=== PATIENT | male | born 1940 | race Caucasian/White ===

== ENCOUNTER 2020-05-07 13:57 | Outpatient (REF) | payer MEDICARE, SELFPAY | END 2020-05-07 13:58 | disposition home or self-care (01) | LOC: HO.HMGCLDS 13:57 | PROVIDERS: Visit Provider Internal Medicine | DX: Z20.828 Contact with and (suspected) exposure to other viral communicable diseases (principal) | CPT/HCPCS: 87635 ==

== ENCOUNTER 2020-11-19 08:38 | Outpatient (REF) | payer MEDICARE, SELFPAY ==
[2020-11-19 11:27] LABS: MANUAL DIFF FLAG NO
[2020-11-19 11:33] LABS: Glucose Urine UA NEG (NEG); Leukocyte Esterase Urine NEG (NEG); Nitrite Urine NEG (NEG); PH 5.5 (5.0-8.0); Specific Gravity - Urine 1.025 (1.005-1.025); Urine Blood NEG (NEG); Urine Ketones NEG (NEG); Urine Protein NEG (NEG-TRACE)
[2020-11-19 11:35] LABS: Appearance Urine CLEAR; Color Urine YELLOW
[2020-11-19 11:47] LABS: Basophils Absolute Auto 0.1 X10*3/uL (0.0-0.2); Basophils Percent Auto 0.9 % (0-2); Eosinophils Absolute Auto 0.2 X10*3/uL (0.0-0.4); Eosinophils Percent Auto 3.4 % (0-4); Hematocrit 43.1 % (42-52); Hemoglobin 14.2 g/dl (14.0-18.0); Imm Gran Abs Auto 0.02 X10*3/uL (0.00-0.03); Imm Gran Pct Auto 0.4 % (0.0-0.4); Lymphocytes Absolute Auto 1.6 X10*3/uL (1.2-4.9); Lymphocytes Percent Auto 27.6 % (20-40); Mean Corpuscular HGB Conc 32.9 g/dl (31.0-36.0); Mean Corpuscular Hemoglobin 30.8 pg (27.0-33.0); Mean Corpuscular Volume 93.5 fL (80-98); Mean Platelet Volume 12.2 fL (9.4-12.4); Monocytes Absolute Auto 0.5 X10*3/uL (0.1-1.2); Neutrophils Absolute Auto 3.4 X10*3/uL (2.0-8.3); Neutrophils Percent Auto 59.7 % (45-73); Platelet Count 224 X10*3/uL (160-400); Red Blood Count 4.61 X10*6/uL (4.60-5.80); Red Cell Distribution Width 12.8 % (11.0-16.0); White Blood Count 5.6 X10*3/uL (4.8-10.8)
[2020-11-19 11:57] LABS: RBC Urine 0-2 /HPF (0); WBC Urine 0 /HPF (0-4)
[2020-11-19 12:02] LABS: Alanine Aminotransferase 49 U/L (0-40); Albumin Level 4.1 g/dL (3.5-5.0); Alkaline Phosphatase 79 U/L (39-117); Anion Gap 14 (12-20); Aspartate Amino Transferase 27 U/L (5-37); Bilirubin Total 0.9 mg/dL (0.0-1.0); Blood Urea Nitrogen 20 mg/dL (9-16); Calcium 9.1 mg/dL (8.4-10.2); Carbon Dioxide 26 mmol/L (22-29); Chloride 105 mmol/L (96-108); Cholesterol 151 mg/dL; Estimated Glomerular Filt Rate > 60; Glucose Random 85 mg/dL (60-115); HDL Cholesterol 55 mg/dL; LDL Cholesterol Calculated 85 mg/dl; Potassium 4.4 mmol/L (3.3-5.1); Sodium 141 mmol/L (135-145); Total Protein 6.6 g/dL (6.5-8.0); Triglycerides 55 mg/dL
[2020-11-19 12:14] LABS: Free T4 (Free Thyroxine) 0.95 ng/dL (0.71-1.85); Thyroid Stimulating Hormone 1.58 uIU/mL (0.32-4.0)
[2020-11-19 12:45] LABS: Folate 19.6 ng/mL (> or = 4.0); Vitamin B12 708 pg/mL (200-900)
== END 2020-11-19 08:39 | disposition home or self-care (01) ==
LOC: HO.HMGCLDS 08:38
PROVIDERS: PCP Internal Medicine; Visit Provider Internal Medicine
DX: E78.00 Pure hypercholesterolemia, unspecified (principal)
CPT/HCPCS: 36415; 80053; 80061; 81001; 82607; 82746; 84439; 84443; 85025

== ENCOUNTER 2021-02-20 07:42 | Outpatient (REF) | payer MEDICARE, SELFPAY ==
--- NOTE | ~2021-02-20 | US_ITS ---
EXAMINATION: US ABDOMEN COMPLETE CLINICAL INFORMATION: Abnormal LFTs. COMPARISON: Renal ultrasound of March 05, 2010 TECHNIQUE: Real-time imaging of the abdominal viscera. FINDINGS: PANCREAS: Normal. ABDOMINAL AORTA: The proximal, mid, and distal segments are normal in caliber. INFERIOR VENA CAVA: Visualized portions are normal. LIVER: Normal. The liver is normal in size. The liver contour is normal. Parenchymal echogenicity is normal. No focal hepatic lesion. There is no intrahepatic biliary duct dilatation seen. GALLBLADDER: Normal. The gallbladder is physiologically distended without evidence of stones, sludge, polyps, wall thickening or pericholecystic fluid. COMMON BILE DUCT: Normal in caliber measuring 0.3 cm in diameter. RIGHT KIDNEY: There is a 3.2 x 2.8 x 3.2 cm midpole cyst as well as a 1.4 x 1.2 x 1.4 cm midpole cyst. No hydronephrosis or renal calculi. The kidney measures 10.3 cm in maximum dimension. LEFT KIDNEY: There are multiple parapelvic cysts present. No hydronephrosis. No renal calculi or focal solid parenchymal lesions. The kidney measures 11.9 cm in maximum dimension. SPLEEN: Normal. The spleen measures 8.0 cm in maximum dimension. FREE FLUID: None. US/US abdomen complete IMPRESSION: Bilateral renal cysts. No definite hepatic abnormality appreciated to explain abnormal LFTs.
== END 2021-02-20 07:43 | disposition home or self-care (01) ==
LOC: HO.US 07:42
PROVIDERS: Visit Provider Internal Medicine
DX: R79.89 Other specified abnormal findings of blood chemistry (principal)
CPT/HCPCS: 76700

== ENCOUNTER 2021-08-19 13:56 | Outpatient (REF) | payer MEDICARE, SELFPAY ==
[2021-08-19 16:52] LABS: Alanine Aminotransferase 53 U/L (0-40); Alkaline Phosphatase 81 U/L (39-117); Anion Gap 13 (12-20); Aspartate Amino Transferase 29 U/L (5-37); Bilirubin Total 0.4 mg/dL (0.0-1.0); Blood Urea Nitrogen 19 mg/dL (9-16); Calcium 9.8 mg/dL (8.4-10.2); Carbon Dioxide 31 mmol/L (22-29); Chloride 103 mmol/L (96-108); Estimated Glomerular Filt Rate > 60; Glucose Random 116 mg/dL (60-115); Iron 126 mcg/dL (45-160); Percent Iron Saturation 30 % (15-50); Potassium 4.8 mmol/L (3.3-5.1); Sodium 142 mmol/L (135-145); Total Iron Binding Capacity 416 mcg/dL (228-428); Total Protein 7.1 g/dL (6.5-8.0); Unsaturated Iron Binding 290 ug/dL
[2021-08-19 17:23] LABS: Ferritin 111 ng/mL (20-250)
[2021-08-20 09:14] LABS: HBS Num1 0.73 mIU/mL (0-7.99); HBc Num1 0.11 S/CO (0.00-0.79); HBsAGNum1 0.17 S/CO (0.00-0.99); Hepatitis B Core Antibody Nonreactive (Nonreactive); Hepatitis B Surface Antigen Negative (Negative); ~HepC Num1 0.09 S/CO (0.00-0.79); ~Hepatitis B Surface Antibody NONREACTIVE (Nonreactive); ~Hepatitis C Antibody Nonreactive (Nonreactive)
[2021-08-20 22:12] LABS: Prot Elec - Albumin 3.9 g/dL (3.8-4.8); Prot Elec - Alpha1 0.3 g/dL (0.2-0.3); Prot Elec - Alpha2 0.8 g/dL (0.5-0.9); Prot Elec - Beta 1 0.5 g/dL (0.4-0.6); Prot Elec - Beta 2 0.4 g/dL (0.2-0.5); Prot Elec - Gamma 0.9 g/dL (0.8-1.7); Prot Elec - Total Protein 6.7 g/dL (6.1-8.1)
== END 2021-08-19 13:57 | disposition home or self-care (01) ==
LOC: HO.HMGCLDS 13:56
PROVIDERS: PCP Internal Medicine; Visit Provider Internal Medicine
DX: Z12.5 Encounter for screening for malignant neoplasm of prostate (principal); R79.89 Other specified abnormal findings of blood chemistry; R94.5 Abnormal results of liver function studies; E78.00 Pure hypercholesterolemia, unspecified
CPT/HCPCS: 36415; 80053; 82728; 83540; 84153; 84165; 86704; 86706; 86803; 87340

== ENCOUNTER 2022-02-20 18:06 | Outpatient (REF) | payer MEDICARE, SELFPAY ==
[2022-02-20 19:02] LABS: Influenza A PCR NEGATIVE (Negative); Influenza B PCR NEGATIVE (Negative); Resp Syncy Virus RNA Qual PCR NEGATIVE (Negative); SARS COV2 PCR INHOUSE NEGATIVE (Negative)
== END 2022-02-20 18:07 | disposition home or self-care (01) ==
LOC: HO.LNP 18:06
PROVIDERS: Visit Provider Internal Medicine
DX: R09.89 Other specified symptoms and signs involving the circulatory and respiratory systems (principal); J02.9 Acute pharyngitis, unspecified; Z20.822 Contact with and (suspected) exposure to COVID-19
CPT/HCPCS: 0241U

== ENCOUNTER 2022-02-26 10:03 | Outpatient (REF) | payer MEDICARE, SELFPAY ==
--- NOTE | ~2022-02-26 | XR_ITS ---
EXAMINATION: XR CHEST CLINICAL INFORMATION: Acute upper respiratory infection COMPARISON: None TECHNIQUE: 2 views of the chest were obtained. FINDINGS: Lungs are well-inflated and clear. Trachea is midline in position. No interstitial disease, consolidation or mass. No pleural effusion or pneumothorax. Cardiac silhouette and pulmonary vessels are normal in size. The mediastinum and gela have normal contour. Mild multilevel discovertebral degenerative change of the thoracic spine. XR/XR chest 2V IMPRESSION: No evidence of pneumonia. No acute cardiopulmonary abnormality.
== END 2022-02-26 10:04 | disposition home or self-care (01) ==
LOC: HO.HMGCX 10:03
PROVIDERS: PCP Internal Medicine; Visit Provider Internal Medicine
DX: J06.9 Acute upper respiratory infection, unspecified (principal)
CPT/HCPCS: 71046

== ENCOUNTER 2022-07-30 07:44 | Outpatient (REF) | payer MEDICARE, SELFPAY ==
[2022-07-30 11:42] LABS: Anion Gap 11 (12-20); Blood Urea Nitrogen 22 mg/dL (9-16); Calcium 9.3 mg/dL (8.4-10.2); Carbon Dioxide 29 mmol/L (22-29); Chloride 105 mmol/L (96-108); Estimated Glomerular Filt Rate > 60; Glucose Fasting 98 mg/dL (60-99); Potassium 4.6 mmol/L (3.3-5.1); Sodium 140 mmol/L (135-145)
== END 2022-07-30 07:45 | disposition home or self-care (01) ==
LOC: HO.HMGCLDS 07:44
PROVIDERS: Nurse Practitioner Family; PCP Internal Medicine; Visit Provider Internal Medicine
DX: Z13.1 Encounter for screening for diabetes mellitus (principal)
CPT/HCPCS: 36415; 80048

== ENCOUNTER 2022-09-09 07:53 | Outpatient (REF) | payer MEDICARE, SELFPAY ==
[2022-09-09 11:28] LABS: MANUAL DIFF FLAG NO
[2022-09-09 11:31] LABS: Basophils Absolute Auto 0.1 X10*3/uL (0.0-0.2); Eosinophils Absolute Auto 0.3 X10*3/uL (0.0-0.4); Eosinophils Percent Auto 3.8 % (0-4); Hemoglobin 15.2 g/dl (14.0-18.0); Imm Gran Abs Auto 0.05 X10*3/uL (0.00-0.03); Imm Gran Pct Auto 0.7 % (0.0-0.4); Lymphocytes Absolute Auto 2.1 X10*3/uL (1.2-4.9); Lymphocytes Percent Auto 30.1 % (20-40); Mean Corpuscular Hemoglobin 30.9 pg (27.0-33.0); Mean Corpuscular Volume 93.5 fL (80.0-98.0); Monocytes Absolute Auto 0.7 X10*3/uL (0.1-1.2); Monocytes Percent Auto 9.3 % (2-11); Neutrophils Absolute Auto 3.9 x10*3/uL (2.0-8.3); Neutrophils Percent Auto 55.1 % (45-73); Platelet Count 245 X10*3/uL (160-400); Red Blood Count 4.92 X10*6/uL (4.60-5.80); Red Cell Distribution Width 13.3 % (11.0-16.0); White Blood Count 7.1 X10*3/uL (4.8-10.8)
[2022-09-09 11:50] LABS: Estimated Average Glucose 117 mg/dL; Hemoglobin A1c % 5.7 %
[2022-09-09 11:53] LABS: Alanine Aminotransferase 53 U/L (0-40); Albumin Level 4.1 g/dL (3.5-5.0); Alkaline Phosphatase 88 U/L (39-117); Anion Gap 13 (12-20); Aspartate Amino Transferase 28 U/L (5-37); Bilirubin Total 0.8 mg/dL (0.0-1.0); Blood Urea Nitrogen 19 mg/dL (9-16); Calcium 9.5 mg/dL (8.4-10.2); Carbon Dioxide 29 mmol/L (22-29); Chloride 104 mmol/L (96-108); Cholesterol 181 mg/dL; Estimated Glomerular Filt Rate > 60; Glucose Random 100 mg/dL (60-115); HDL Cholesterol 64 mg/dL; LDL Cholesterol Calculated 101 mg/dl; Potassium 4.8 mmol/L (3.3-5.1); Sodium 141 mmol/L (135-145); Total Protein 6.7 g/dL (6.5-8.0); Triglycerides 80 mg/dL
[2022-09-09 12:27] LABS: Folate 19.2 ng/mL (> or = 4.0); Free T4 (Free Thyroxine) 1.01 ng/dL (0.71-1.85); Thyroid Stimulating Hormone 1.98 uIU/mL (0.32-4.0); Vitamin B12 > 2000 pg/mL (200-900)
== END 2022-09-09 07:54 | disposition home or self-care (01) ==
LOC: HO.HMGCLDS 07:53
PROVIDERS: PCP Internal Medicine; Visit Provider Internal Medicine
DX: E66.3 Overweight (principal); E78.00 Pure hypercholesterolemia, unspecified
CPT/HCPCS: 36415; 80053; 80061; 82607; 82746; 83036; 84439; 84443; 85025

== ENCOUNTER 2023-03-24 14:17 | Outpatient (AMB) | payer MEDICARE, SELFPAY ==
[2023-03-24 14:20] VITALS: BP 124/76; BMI 25.8
--- NOTE | 2023-03-24 14:20 | A.OFFPC_ITS ---
Vital Signs 03/24/23 14:20 Height 5 ft 6 in Weight 160 lb BMI 25.8 BP 124/76 Blood Pressure Location Lt brachial Position Sitting Pulse Source Pulse Oximeter Oxygen Delivery Method Room Air Intake Visit Reasons: Hypercholesterolemia Allergies prednisone [PREDNISONE] Allergy (Intermediate, Verified 03/24/23 14:20) EXTREME HIVES Medication List - Last Reconciled 03/24/23 by Arley Hills MD atorvastatin 40 mg PO DAILY 90 days cholecalciferol (vitamin D3) 50 mcg PO DAILY elderberry fruit-honey 0.7-3 gram/7.5 mL mL PO flaxseed oil ([employer]-3 Flaxseed Oil) 1,000 mg PO DAILY fluticasone propionate 50 mcg/actuation 1 spray intranasal BID jbqbeasiaiv-eieuqbjkm-ymq C-Mn 500-400 mg caps PO lactobacillus combination no.9 (Adult 50 Plus Probiotic) 4,000 mmu cells PO DAILY multivitamin 1 tab PO DAILY Tobacco use date assessed: 08/11/22 Fall risk assessment: No Falls in past year Last assessed Fall Risk: 03/24/23 Dental Screening Dental Screen Date: 03/24/23 Did you have a dental visit in the last 12 months?: Yes Did you have a dental problem in the last 6 months where you did not have access to dental care?: No Was dental information given to patient?: Patient has dentist HPI Hypercholesterolemia HPI Details 82-year-old overweight male with a history of impaired glucose tolerance hypercholesterolemia and the elevated liver function coming in for follow-up last seen in August 2022. Colonoscopy last done in February 2012. concern about memory . has frequency. About decreasing fluid intake before sleeping PFSH Medical History Adult general medical exam Anxiety Sore throat Tick bite URI with cough and congestion Surgical History Hx of tonsillectomy Family History (Updated 03/24/23 @ 14:22 by Caterina Salvador MA) Father No problems noted. Mother No problems noted. Brother No problems noted. Sister No problems noted. Sister No problems noted. Sister No problems noted. Son No problems noted. Social History Housing: Condominium Alcohol intake: current Alcohol intake frequency: a few times a month Patient Tobacco Use Status: Never used Tobacco e-Cigarette/Vaping Use: Never Used Second Hand Smoke Exposure: No service: Yes Current occupational status: retired Current occupational exposures/hazards: No Cognitive needs: No Hearing needs: No Vision needs: Yes Questionnaire PHQ-9 Over the last 2 weeks, how often have you been bothered by any of the following problems? 1. Little interest or pleasure in doing things: not at all 2. Feeling down, depressed, or hopeless: not at all 3. Trouble falling or staying asleep, or sleeping too much: not at all 4. Feeling tired or having little energy: not at all 5. Poor appetite or overeating: not at all 6. Feeling bad about yourself - or that you are a failure or have let yourself or your family down: not at all 7. Trouble concentrating on things, such as reading the newspaper or watching television: not at all 8. Moving or speaking so slowly that other people could have noticed. Or the opposite - being so fidgety or restless that you have been moving around a lot more than usual: not at all 9. Thoughts that you would be better off or of hurting yourself in some way: not at all Total score: 0 Depression Screening Interpretation: Negative Source: Developed by Drs. Tod Og, Estrada Kerr and colleagues, with an educational eugenie from [employer]. Thrive Questionnaire Date Thrive assessed: 08/11/22 AUDIT C Alcohol Use Questionnaire (AUDIT-C) 1. How often do you have a drink containing alcohol?: Never 3. How often do you have six or more drinks on one occasion?: Never Total Score: 0 Score Reviewed/Action Taken: No CHELSEA-7 AMB Questionnaire CHELSEA-7 Date CHELSEA - 7 assessed: 08/11/22 Source: Developed by Drs. Tod Og, Estrada Kerr and colleagues, with an educational eugenie from [employer]. Physical exam (Primary Care) Vital Signs: Last Vital Signs BP 124/76 03/24/23 14:20 Oxygen Delivery Method Room Air 03/24/23 14:20 BMI result Body Mass Index 27.0 Tobacco/Smoking Status: Tobacco use Status Tobacco use date assessed 08/11/22 03/24/23 14:27 Patient Tobacco Use Status Never used Tobacco 03/24/23 14:27 e-Cigarette/Vaping Use Never Used 03/24/23 14:27 PHQ-9: PHQ-9 Score PHQ-9: Total score 0 03/24/23 14:53 Depression Screening Interpretation: Negative Thrive Assessment: Date of Thrive Assessment Date Thrive assessed 08/11/22 03/24/23 14:27 Const General: alert; No acute distress Eyes Conjunctivae: conjunctivae normal Resp Auscultation: clear to auscultation bilaterally Cardio Rate: regular rate Rhythm: regular rhythm GI Inspection: Yes normal to inspection Extrem General: Yes normal to inspection and No edema Assessment and Plan Assessment & Plan (1) Difficulty hearing: Code(s): H91.90 - Unspecified hearing loss, unspecified ear (2) Impaired glucose tolerance: Code(s): R73.02 - Impaired glucose tolerance (oral) Plan: Decrease the amount of carbohydrate intake, pasta, bread, rice and potatoes are all sugar and that is aside from all the sweet stuff, remember that fruits are g ood but they are Sweet also. (3) Overweight (BMI 25.0-29.9): Code(s): E66.3 - Overweight Plan: Diet and exercise (4) LFT elevation: Comment: Ultrasound done negative Code(s): R79.89 - Other specified abnormal findings of blood chemistry Plan: Will continue to monitor liver function test. But this is stable (5) Hypercholesterolemia: Code(s): E78.00 - Pure hypercholesterolemia, unspecified Plan: Avoid fried foods, chicken skin, eggs, butter margarine, pastries and meat. Be it pork or beef they have a lot of cholesterol LDL goal of less than 130 and triglyceride of less than 150 Orders: Orders Vitamin B12 and Folate 6 Months E78.00 - Pure hypercholesterolemia, unspecified Comprehensive Met. Panel 6 Months E78.00 - Pure hypercholesterolemia, unspecified Hemoglobin A1c 6 Months E78.00 - Pure hypercholesterolemia, unspecified Lipid Panel 6 Months E78.00 - Pure hypercholesterolemia, unspecified Free T4 (Free Thyroxine) 6 Months E78.00 - Pure hypercholesterolemia, unspecified Thyroid Stimulating Hormone 6 Months E78.00 - Pure hypercholesterolemia, unspecified Complete Blood Count Auto Diff 6 Months E78.00 - Pure hypercholesterolemia, unspecified UA w Microscopic Today E78.00 - Pure hypercholesterolemia, unspecified Coding Level of Care Code Est Pt Level 4 (72635) Diagnoses Difficulty hearing H91.90 Impaired glucose tolerance R73.02 Overweight (BMI 25.0-29.9) E66.3 LFT elevation R79.89 Hypercholesterolemia E78.00 Additional Codes PHQ-9 - 39513 - PHQ-9 Billing: Y ([id number])
== END 2023-03-24 15:09 | disposition home or self-care (01) ==
PROVIDERS: Visit Provider Internal Medicine
DX: H91.90 Unspecified hearing loss, unspecified ear (principal); R73.02 Impaired glucose tolerance (oral); E66.3 Overweight; R79.89 Other specified abnormal findings of blood chemistry; E78.00 Pure hypercholesterolemia, unspecified
CPT/HCPCS: 99214

== ENCOUNTER 2023-07-17 09:44 | Outpatient (REF) | payer MEDICARE, SELFPAY ==
[2023-07-17 11:02] LABS: Influenza A PCR POSITIVE (Negative); Influenza B PCR NEGATIVE (Negative); Resp Syncy Virus RNA Qual PCR NEGATIVE (Negative); SARS COV2 PCR INHOUSE NEGATIVE (Negative)
== END 2023-07-17 09:45 | disposition home or self-care (01) ==
LOC: HO.LAB 09:44
PROVIDERS: PCP Internal Medicine; Visit Provider Internal Medicine
DX: R05.9 Cough, unspecified (principal); Z11.52 Encounter for screening for COVID-19
CPT/HCPCS: 0241U

== ENCOUNTER 2023-09-10 07:26 | Outpatient (REF) | payer MEDICARE, SELFPAY ==
[2023-09-10 11:37] LABS: Appearance Urine Clear; Color Urine Yellow; Glucose Urine UA Negative (Negative); Leukocyte Esterase Urine Negative (Negative); MANUAL DIFF FLAG NO; Nitrite Urine Negative (Negative); Specific Gravity - Urine 1.015 (1.005-1.025); Urine Blood Negative (Negative); Urine Ketones Negative (Negative); Urine Protein Negative (Neg-Trace)
[2023-09-10 11:43] LABS: Bacteria Urine None Seen (None Seen); Hyaline Casts Urine 0-2 /LPF (0-2); RBC Urine 0-2 /HPF (0-2); Squamous Epithelial Cell Urine 0-2 /HPF (0-2); WBC Urine 0-5 /HPF (0-5)
[2023-09-10 11:52] LABS: Basophils Absolute Auto 0.1 X10*3/uL (0.0-0.2); Eosinophils Absolute Auto 0.2 X10*3/uL (0.0-0.4); Eosinophils Percent Auto 3.1 % (0-4); Hematocrit 44.8 % (42.0-52.0); Hemoglobin 14.9 g/dl (14.0-18.0); Imm Gran Abs Auto 0.03 X10*3/uL (0.00-0.03); Imm Gran Pct Auto 0.5 % (0.0-0.4); Lymphocytes Absolute Auto 1.8 X10*3/uL (1.2-4.9); Lymphocytes Percent Auto 29.9 % (20-40); Mean Corpuscular HGB Conc 33.3 g/dl (31.0-36.0); Mean Corpuscular Hemoglobin 31.2 pg (27.0-33.0); Mean Corpuscular Volume 93.7 fL (80.0-98.0); Mean Platelet Volume 11.9 fL (9.4-12.4); Monocytes Absolute Auto 0.5 X10*3/uL (0.1-1.2); Neutrophils Absolute Auto 3.3 x10*3/uL (2.0-8.3); Neutrophils Percent Auto 56.5 % (45-73); Platelet Count 234 X10*3/uL (160-400); Red Blood Count 4.78 X10*6/uL (4.60-5.80); Red Cell Distribution Width 12.9 % (11.0-16.0); White Blood Count 5.9 X10*3/uL (4.8-10.8)
[2023-09-10 11:55] LABS: Estimated Average Glucose 117 mg/dL; Hemoglobin A1c % 5.7 % (<6.0)
[2023-09-10 12:23] LABS: Alanine Aminotransferase 54 U/L (0-40); Alkaline Phosphatase 78 U/L (39-117); Anion Gap 12 (12-20); Aspartate Amino Transferase 32 U/L (5-37); Bilirubin Total 0.6 mg/dL (0.0-1.0); Blood Urea Nitrogen 18 mg/dL (9-16); Calcium 9.5 mg/dL (8.4-10.2); Carbon Dioxide 30 mmol/L (22-29); Chloride 104 mmol/L (96-108); Cholesterol 175 mg/dL (<200); Estimated Glomerular Filt Rate > 60; Glucose Random 97 mg/dL (60-115); HDL Cholesterol 63 mg/dL (>40); LDL Cholesterol Calculated 98 mg/dL (<100); Potassium 4.5 mmol/L (3.3-5.1); Sodium 141 mmol/L (135-145); Total Protein 7.2 g/dL (6.5-8.0); Triglycerides 73 mg/dL (<150)
[2023-09-10 12:26] LABS: Folate 14.4 ng/mL (> or = 4.0); Free T4 (Free Thyroxine) 0.94 ng/dL (0.71-1.85); Thyroid Stimulating Hormone 1.83 uIU/mL (0.32-4.0); Vitamin B12 879 pg/mL (200-900)
== END 2023-09-10 07:27 | disposition home or self-care (01) ==
LOC: HO.HMGCLDS 07:26
PROVIDERS: PCP Internal Medicine; Visit Provider Internal Medicine
DX: E78.00 Pure hypercholesterolemia, unspecified (principal)
CPT/HCPCS: 36415; 80053; 80061; 81001; 82607; 82746; 83036; 84439; 84443; 85025

== ENCOUNTER 2023-09-14 08:32 | Outpatient (AMB) | payer MEDICARE, SELFPAY ==
--- NOTE | 2023-09-14 08:33 | MHC.PC.OV ---
Vital Signs 09/14/23 08:36 Height 5 ft 6 in Weight 159 lb 2 oz BMI 25.7 BP 128/78 Blood Pressure Location Lt brachial Position Sitting Pulse 75 Pulse Source Pulse Oximeter Pulse Oximetry (%) 96 Oxygen Delivery Method Room Air Intake Visit Reasons: 6MTH F/U Intake Note: Patient is here to follow up on Hypercholesterolemia, impaired glucose tolerance. Doll Repairer Required: No Advertising Sales Associate: Not Required per policy Accompanied by: Self / Same As Patient Allergies prednisone [PREDNISONE] Allergy (Intermediate, Verified 09/14/23 08:35) EXTREME HIVES Tobacco use date assessed: 09/14/23 Fall risk assessment: No Falls in past year Last assessed Fall Risk: 09/14/23 Dental Screening Dental Screen Date: 09/14/23 Did you have a dental visit in the last 12 months?: No Did you have a dental problem in the last 6 months where you did not have access to dental care?: No Was dental information given to patient?: No HPI 6MTH F/U HPI Details 83-year-old male with a history of impaired glucose tolerance hypercholesterolemia LFT evaluation last seen in February 2023 patient is here for follow-up patient just had some blood work normal blood count. Noted had a flu in June. Patient has been doing good otherwise no nausea no vomiting no chest pains no shortness a breath no bowel bladder symptoms. Busy with going for treatment in [place] and will be there for the next few weeks [facility] and [facility] Medical History Adult general medical exam Anxiety Sore throat Tick bite URI with cough and congestion Surgical History Hx of tonsillectomy Family History Father No problems noted. Mother No problems noted. Brother No problems noted. Sister No problems noted. Sister No problems noted. Sister No problems noted. Son No problems noted. Social History Housing: Condominium Alcohol intake: current Alcohol intake frequency: a few times a month Patient Tobacco Use Status: Never used Tobacco e-Cigarette/Vaping Use: Never Used Second Hand Smoke Exposure: No service: Yes Current occupational status: retired Current occupational exposures/hazards: No Cognitive needs: No Hearing needs: No Vision needs: Yes (glasses) Questionnaire PHQ-9 Over the last 2 weeks, how often have you been bothered by any of the following problems? 1. Little interest or pleasure in doing things: not at all 2. Feeling down, depressed, or hopeless: not at all 3. Trouble falling or staying asleep, or sleeping too much: not at all 4. Feeling tired or having little energy: not at all 5. Poor appetite or overeating: not at all 6. Feeling bad about yourself - or that you are a failure or have let yourself or your family down: not at all 7. Trouble concentrating on things, such as reading the newspaper or watching television: not at all 8. Moving or speaking so slowly that other people could have noticed. Or the opposite - being so fidgety or restless that you have been moving around a lot more than usual: not at all 9. Thoughts that you would be better off or of hurting yourself in some way: not at all Total score: 0 Depression Screening Interpretation: Negative Depression Screening Done: Yes Source: Developed by Drs. Tod Og, Vivienne Verma, Estrada Granado and colleagues, with an educational eugenie from [employer]. Thrive Questionnaire Date Thrive assessed: 09/14/23 I am a: Patient What is your living situation today?: I have a steady place to live Within the past 12 months, did the food you bought not last and you didn't have the money to get more?: Never true Within the past 12 months, did you worry whether your food would run out before you got money to buy more?: Never true Do you have trouble paying for medicines?: No Do you have trouble getting transportation to medical appointments?: No Do you have trouble paying your heating and electricity bill?: No Do you have trouble taking care of your child, family member or friend?: No Do you have trouble with day-to-day activities such as bathing, preparing meals, shopping, managing finances, etc.?: No Are you currently unemployed and looking for a job?: No Are you interested in more education?: No Currently or been in a relationship where the following occur: no concerns reported THRIVE Score: 0 AUDIT C Alcohol Use Questionnaire (AUDIT-C) 1. How often do you have a drink containing alcohol?: Never Total Score: 0 CHELSEA-7 AMB Questionnaire CHELSEA-7 Date CHELSEA - 7 assessed: 09/14/23 Feeling nervous, anxious, or on edge: 1 = Several days Not being able to stop or control worryin = Not at all Worrying too much about different things: 0 = Not at all Trouble relaxin = Not at all Being so restless that it is hard to sit still: 0 = Not at all Becoming easily annoyed or irritable: 0 = Not at all Feeling afraid as if something awful might happen: 0 = Not at all Total CHELSEA-7 score (0-4 normal; 5-9 mild; 10-14 moderate; 15-21 severe): 1 Source: Developed by Drs. Tod Og, Vivienne Verma, Estrada Granado and colleagues, with an educational eugenie from [employer]. Physical exam (Primary Care) Vital Signs: Last Vital Signs Pulse 75 09/14/23 08:36 BP 128/78 09/14/23 08:36 Pulse Ox 96 09/14/23 08:36 Oxygen Delivery Method Room Air 09/14/23 08:36 BMI result Body Mass Index 25.7 Tobacco/Smoking Status: Tobacco use Status Tobacco use date assessed 09/14/23 09/14/23 08:42 Patient Tobacco Use Status Never used Tobacco 09/14/23 08:33 e-Cigarette/Vaping Use Never Used 09/14/23 08:33 PHQ-9: PHQ-9 Score PHQ-9: Total score 0 09/14/23 08:42 Depression Screening Interpretation: Negative Thrive Assessment: Date of Thrive Assessment Date Thrive assessed 09/14/23 09/14/23 08:42 Currently or been in a relationship where the following occur: no concerns reported Const General: alert; No acute distress Eyes Conjunctivae: conjunctivae normal Resp Auscultation: clear to auscultation bilaterally Cardio Rate: regular rate Rhythm: regular rhythm GI Inspection: Yes normal to inspection Extrem General: Yes normal to inspection and No edema Assessment and Plan Assessment & Plan (1) LFT elevation: Comment: Ultrasound done negative Code(s): R79.89 - Other specified abnormal findings of blood chemistry Plan: Continue to monitor. Ultrasound done negative (2) Impaired glucose tolerance: Code(s): R73.02 - Impaired glucose tolerance (oral) Plan: Decrease the amount of carbohydrate intake, pasta, bread, rice and potatoes are all sugar and that is aside from all the sweet stuff, remember that fruits are good but they are Sweet also. Hemoglobin A1c 5.7 (3) Hypercholesterolemia: Code(s): E78.00 - Pure hypercholesterolemia, unspecified Plan: Avoid fried foods, chicken skin, eggs, butter margarine, pastries and meat. Be it pork or beef they have a lot of cholesterol LDL goal of less than 130 and triglyceride of less than 150. Patient on atorvastatin Orders: Orders Complete Blood Count Auto Diff 6 Months R73.02 - Impaired glucose tolerance (oral) Comprehensive Met. Panel 6 Months R73.02 - Impaired glucose tolerance (oral) Vitamin B12 and Folate 6 Months R73.02 - Impaired glucose tolerance (oral) Lipid Panel 6 Months E78.00 - Pure hypercholesterolemia, unspecified, R73.02 - Impaired glucose tolerance (oral) Free T4 (Free Thyroxine) 6 Months R73.02 - Impaired glucose tolerance (oral) Thyroid Stimulating Hormone 6 Months R73.02 - Impaired glucose tolerance (oral) UA CC w/rflx Micro + Cult 6 Months R30.0 - Dysuria, R73.02 - Impaired glucose tolerance (oral) Hemoglobin A1c 6 Months R73.02 - Impaired glucose tolerance (oral) Coding Level of Care Code Est Pt Level 4 (24814) Diagnoses LFT elevation R79.89 Impaired glucose tolerance R73.02 Hypercholesterolemia E78.00
[2023-09-14 08:36] VITALS: BP 128/78; PULSE 75; O2SAT 96; BMI 25.7
== END 2023-09-14 09:08 | disposition home or self-care (01) ==
PROVIDERS: PCP Internal Medicine; Visit Provider Internal Medicine
DX: R79.89 Other specified abnormal findings of blood chemistry (principal); R73.02 Impaired glucose tolerance (oral); E78.00 Pure hypercholesterolemia, unspecified
CPT/HCPCS: 99214

== ENCOUNTER 2024-01-18 08:36 | Outpatient (AMB) | payer MEDICARE, SELFPAY ==
[2024-01-18 09:02] VITALS: BP 122/66; PULSE 88; O2SAT 98
--- NOTE | 2024-01-18 09:02 | AM.OFFWIN_ITS ---
Intake Vital Signs 01/18/24 09:02 Height 5 ft 6 in BP 122/66 Blood Pressure Location Lt brachial Position Sitting Pulse 88 Pulse Source Pulse Oximeter Pulse Oximetry (%) 98 Oxygen Delivery Method Room Air Intake Visit Reasons: EP stomach pain Intake Note: pt is here for stomach pain Patient Tobacco Use Status: Never used Tobacco Allergies prednisone [PREDNISONE] Allergy (Intermediate, Verified 01/18/24 09:02) EXTREME HIVES Do you need a note to return to daycare/school/sports/work: No HPI HPI Comments History of Present Illness Details 83 y/o male patient who presents to walk in clinic with c/o right sided lower Quadrant abdominal pain that started Thursday. Reports the pain at 7/10 radiating to the left lower side. Denies Constipation, diarrhea bt does endorse softer/loose stools. He does report no appetite. Denies nausea or vomiting. Denies fevers or chills. Denies any diet changes. He has been eating scrambled eggs for dinner with no much concerns. [facility] Medical History Adult general medical exam Anxiety Sore throat Tick bite URI with cough and congestion Surgical History Hx of tonsillectomy Family History Father No problems noted. Mother No problems noted. Brother No problems noted. Sister No problems noted. Sister No problems noted. Sister No problems noted. Son No problems noted. Social History Housing: Condominium Alcohol intake: current Alcohol intake frequency: a few times a month Patient Tobacco Use Status: Never used Tobacco e-Cigarette/Vaping Use: Never Used Second Hand Smoke Exposure: No service: Yes Current occupational status: retired Current occupational exposures/hazards: No Cognitive needs: No Hearing needs: No Vision needs: Yes (glasses) Review of Systems Const All systems reviewed & are unremarkable except as noted in HPI and below Physical Exam Vital Signs: Last Vital Signs Pulse 88 01/18/24 09:02 BP 122/66 01/18/24 09:02 Pulse Ox 98 01/18/24 09:02 Oxygen Delivery Method Room Air 01/18/24 09:02 Const General: no acute distress; No comfortable Nutritional Appearance: well nourished Orientation/consciousness: patient oriented x3 Resp Effort & Inspection: normal respiratory effort and able to speak in complete sentences Auscultation: clear to auscultation bilaterally Cardio Rate: regular rate Rhythm: regular rhythm GI Inspection: Yes distended and Yes obesity Palpation (GI): Soft to palpation, Tenderness to palpation present (GI) in the RLQ and with rebound tenderness, Guarding due to palpation present (GI), no hernias and no masses Auscultation: Hypoactive bowel sounds present Rectal Exam - Male: Yes deferred Neuro General: patient oriented x3, gait normal and moves all extremities Psych Speech and movement: Normal speech and movement present Assessment & Plan Assessment & Plan (1) Abdominal pain: Code(s): R10.9 - Unspecified abdominal pain Qualifiers: Abdominal location: right lower quadrant Qualified Code(s): R10.31 - Right lower quadrant pain Plan: Advised Pt to go to ED for further evaluation. Pt stable, and drove patient to ED. Coding Level of Care Code Est Pt Level 4 (97489) Diagnoses Right lower quadrant abdominal pain R10.31 Abdominal location: right lower quadrant Time Spent (min) 20
== END 2024-01-18 09:36 | disposition home or self-care (01) ==
PROVIDERS: PCP Internal Medicine; Visit Provider Nurse Practitioner Family
DX: R10.31 Right lower quadrant pain (principal)
CPT/HCPCS: 99214

== ENCOUNTER 2024-01-18 09:55 | Observation (INO) | payer MEDICARE, SELFPAY ==
--- NOTE | ~2024-01-18 | CT_ITS ---
EXAMINATION: CT ABDOMEN AND PELVIS WITH CONTRAST CLINICAL INFORMATION: RLQ pain / guarding, concern for appy COMPARISON: None. TECHNIQUE: Multidetector volumetric imaging was performed from the superior aspect of the liver through the pubic symphysis following administration of 85 mL Omnipaque 300 intravenous contrast. Sagittal and coronal reformatted images were obtained on the technologist workstation.. This CT examination was performed using dose optimization techniques as appropriate, variously including the following: *Automated exposure control *Adjustment of mA and/or kV according to patient size (this includes techniques or standardized protocols for targeted exams where dose is matched to indication/reason for exam; i.e. extremities or head) *Use of iterative reconstruction technique DLP: 430 mGy-cm FINDINGS: LUNG BASES: The visualized lung bases are unremarkable. LIVER, GALLBLADDER, AND BILIARY TREE: The liver is normal in size, shape, and attenuation. No focal hepatic lesion or biliary ductal dilatation is present. The gallbladder is unremarkable with no evidence of radiopaque gallstones, gallbladder wall thickening, or obvious pericholecystic inflammatory changes. PANCREAS: Unremarkable. SPLEEN: Unremarkable. ADRENAL GLANDS: Unremarkable. KIDNEYS AND URETERS: The kidneys are normal in size, shape, and attenuation. Left-sided parapelvic cysts in the right lateral cortical cyst incidentally noted. No hydronephrosis, hydroureter, or perinephric stranding. No calculi. BLADDER: Unremarkable. GASTROINTESTINAL TRACT: The small and large bowel are unremarkable. The appendix is abnormal with significant periappendiceal inflammatory changes. The appendix is abnormally thickened measuring up to 1.3 cm in maximal short axis diameter. I do not appreciate any periappendiceal abscess or drainable collection at this time no obstructive changes to the bowel. ABDOMINAL WALL: No significant hernia is appreciated. LYMPHOVASCULAR STRUCTURES: Vascular calcification within the aorta iliac system. No bulky adenopathy PELVIC VISCERA: Unremarkable. OSSEOUS STRUCTURES: Degenerative changes in the lower lumbar spine CT/CT abdomen pelvis w IV con IMPRESSION: Abnormally thickened appendix with periappendiceal inflammatory changes consistent with acute appendicitis. I do not appreciate any periappendiceal abscess or drainable collection at this time.
[2024-01-18 09:58] VITALS: BP 140/68; PULSE 85; RESP 18; TEMP 36.6; O2SAT 97; BMI 25.1
[2024-01-18 12:35] LABS: MANUAL DIFF FLAG NO
[2024-01-18 12:39] LABS: Basophils Absolute Auto 0.1 X10*3/uL (0.0-0.2); Basophils Percent Auto 0.5 % (0-2); Eosinophils Absolute Auto 0.2 X10*3/uL (0.0-0.4); Eosinophils Percent Auto 1.7 % (0-4); Hematocrit 41.6 % (42.0-52.0); Hemoglobin 14.3 g/dl (14.0-18.0); Imm Gran Abs Auto 0.06 X10*3/uL (0.00-0.03); Imm Gran Pct Auto 0.6 % (0.0-0.4); Lymphocytes Absolute Auto 1.4 X10*3/uL (1.2-4.9); Lymphocytes Percent Auto 13.7 % (20-40); Mean Corpuscular HGB Conc 34.4 g/dl (31.0-36.0); Mean Corpuscular Hemoglobin 32.1 pg (27.0-33.0); Mean Corpuscular Volume 93.3 fL (80.0-98.0); Mean Platelet Volume 11.5 fL (9.4-12.4); Monocytes Absolute Auto 0.7 X10*3/uL (0.1-1.2); Monocytes Percent Auto 7.2 % (2-11); Neutrophils Absolute Auto 7.6 x10*3/uL (2.0-8.3); Neutrophils Percent Auto 76.3 % (45-73); Platelet Count 226 X10*3/uL (160-400); Red Blood Count 4.46 X10*6/uL (4.60-5.80); Red Cell Distribution Width 13.1 % (11.0-16.0)
[2024-01-18 12:45] LABS: Prothrombin Time 12.2 SEC (11.1-13.3)
[2024-01-18 12:53] LABS: Alanine Aminotransferase 29 U/L (0-40); Albumin Level 3.8 g/dL (3.5-5.0); Alkaline Phosphatase 88 U/L (39-117); Anion Gap 14 (12-20); Aspartate Amino Transferase 15 U/L (5-37); Bilirubin Direct 0.2 mg/dL (0.0-0.5); Bilirubin Total 0.4 mg/dL (0.0-1.0); Blood Urea Nitrogen 20 mg/dL (9-16); Calcium 9.7 mg/dL (8.4-10.2); Carbon Dioxide 27 mmol/L (22-29); Chloride 105 mmol/L (96-108); Estimated Glomerular Filt Rate > 60; Glucose Random 83 mg/dL (60-115); Lipase 17 U/L (8-78); Magnesium 2.1 mg/dL (1.6-2.6); Potassium 4.1 mmol/L (3.3-5.1); Sodium 142 mmol/L (135-145); Total Protein 7.3 g/dL (6.5-8.0)
[2024-01-18 13:03] LABS: Appearance Urine Clear; Color Urine Dark Yellow; Glucose Urine UA Negative (Negative); Leukocyte Esterase Urine Negative (Negative); Nitrite Urine Negative (Negative); PH 5.5 (5.0-9.0); Specific Gravity - Urine 1.025 (1.005-1.025); Urine Blood Negative (Negative); Urine Ketones Trace mg/dL (Negative); Urine Protein Trace mg/dL (Neg-Trace)
[2024-01-18 17:33] VITALS: BP 106/62; PULSE 69; RESP 14; TEMP 36.1; O2SAT 99
--- NOTE | 2024-01-18 17:37 | ED_ITS ---
HPI - General Adult General Chief complaint: Abdominal Pain Stated complaint: Abd pain Time Seen by Provider: 01/18/24 17:37 Source: patient and family (patient's ) Mode of arrival: ambulatory Limitations: no limitations History of Present Illness ED Provider: Parvin King PA-C HPI narrative: Patient is an 83 year old assigned male at with a history of hypercholesterolemia presenting to the emergency department today with right lower quadrant abdominal pain. Patient states that over the last 3 days he has had RLQ abdominal pain. Patient states that he still has an appendix. Patient denies any dizziness, lightheadedness, nausea, vomiting, fever, chills, blurry vision, double vision, loss of vision, chest pain, difficulty breathing, shortness of breath, back pain, night sweats, pain with urination, increased urinary frequency, increased urinary urgency, blood in his urine or stool, syncope or a near syncopal episode, recent trauma or falls, bowel incontinence, bladder incontinence, or any other complaints at this time. Onset (ago): day(s) (3) Location: abdomen and right Severity: mild Severity scale (1-10): 3 Quality: aching and dull Pain Consistency: constant Relieving factors: none Exacerbating factors: none Associated symptoms: denies other symptoms Treatments prior to arrival: none Related Data Home Medications ?Medication ?Instructions ?Recorded ?Confirmed cholecalciferol (vitamin D3) 50 50 mcg PO DAILY 10/26/20 03/24/23 mcg (2,000 unit) capsule elderberry fruit 0.7 gram-honey 3 ml PO 10/26/20 03/24/23 gram/7.5 mL oral liquid flaxseed oil 1,000 mg capsule 1,000 mg PO DAILY 10/26/20 03/24/23 ([place]-3 Flaxseed Oil) gjgcymjuckw-luqkhksfa-qtm C-Mn 500 cap PO 10/26/20 03/24/23 mg-400 mg capsule lactobacillus combination no.9 4 4,000 mmu cells PO DAILY 10/26/20 03/24/23 billion cell capsule (Adult 50 Plus Probiotic) multivitamin 1 tab PO DAILY 10/26/20 03/24/23 fluticasone propionate 50 1 spray intranasal BID 03/11/22 03/24/23 mcg/actuation nasal spray,suspension Previous Rx's ?Medication ?Instructions ?Recorded atorvastatin 40 mg tablet 40 mg PO DAILY 90 days #90 tabs 03/03/23 Allergies Allergy/AdvReac Type Severity Reaction Status Date / Time prednisone [PREDNISONE] Allergy Intermediate EXTREME Verified 01/18/24 10:01 JUAN LUIS Review of Systems 2 Constitutional: Constitutional: Reports no additional constitutional complaints, Denies chills, Denies fever(s) and Denies night sweats Eyes: Eyes: Reports no additional eye complaints, Denies blurry vision, Denies change in vision, Denies diplopia, Denies eye discharge, Denies loss of vision and Denies eye pain ENT: Denies dizziness Cardiovascular: Cardiovascular: Reports no additional cardiovascular complaints, Denies chest pain, Denies lightheadedness, Denies Loss of Consciousness and Denies dyspnea Respiratory: Respiratory: Reports no additional respiratory complaints and Denies dyspnea Gastrointestinal: Gastrointestinal: Reports no additional gastrointestinal complaints, Reports abdominal pain, Denies melena, Denies hematochezia, Denies change in bowel habits, Denies change in stool character, Denies nausea and Denies vomiting Genitourinary: Genitourinary: Reports no additional male genitourinary complaints, Denies hematuria, Denies oliguria, Denies difficulty urinating, Denies dysuria, Denies urinary frequency, Denies urinary hesitancy, Denies urinary incontinence and Denies urinary urgency Musculoskeletal: Musculoskeletal: Reports no additional musculoskeletal complaints, Denies numbness and Denies tingling Neurologic: Denies dizziness, Denies loss of vision, Denies numbness and Denies tingling Psychiatric: Psychiatric: Reports no additional psychiatric complaints Endocrine: Endocrine: Reports no additional endocrine complaints Hematologic/Lymphatic: Hematologic/Lymphatic: Reports no additional hematologic/lymphatic complaints Allergic/Immunologic: Allergic/Immunologic: Reports no additional allergic/immunologic complaints FOR[facility]LY [facility] Past Medical History Attestation statement: The following information was validated with the patient. (patient's validated all information) Source: old records reviewed, obtained from family (patient's provided additional history and confirmed the history provided by the patient) and nursing notes reviewed Medical History Anxiety Adult general medical exam URI with cough and congestion Sore throat Tick bite Surgical History Hx of tonsillectomy Family History Family History Father No problems noted. Mother No problems noted. Brother No problems noted. Sister No problems noted. Sister No problems noted. Sister No problems noted. Son No problems noted. Social History Social History Housing: [facility] Alcohol intake: current Alcohol intake frequency: holidays/special occasions only Patient Tobacco Use Status: Never used Tobacco Smoked in Last 30 Days: No e-Cigarette/Vaping Use: Never Used Second Hand Smoke Exposure: No Use of substances other than those prescribed or required for medical reasons: No Advance Directives: No Advance Directives Information Provided: No Do you have a plan to hurt others: No Plan service: Yes Current occupational status: retired Current occupational exposures/hazards: No Cognitive needs: No Hearing needs: No Vision needs: Yes (glasses) Physical Exam ED Vital Signs: Vital Signs - 24 hr 01/18/24 09:58 01/18/24 17:33 01/18/24 20:25 Temperature 97.9 F 97 F Pulse Rate 85 69 61 Respiratory Rate 18 14 16 Blood Pressure 140/68 H 106/62 130/71 Pulse Oximetry 97 99 96 Oxygen Delivery Method Room Air Room Air Room Air BMI result Body Mass Index 25.1 Const General: cooperative, no acute distress, alert and awake Nutritional Appearance: well nourished Orientation/consciousness: patient oriented x3 Limitations: no limitations HENMT Head: Yes normal to inspection and Yes atraumatic Ears: hearing grossly normal bilaterally and external ears normal General nose exam: Normal external nose present, no nasal discharge noted and no epistaxis Face and sinus: Yes normal facial exam, No abrasion and No laceration Mouth: Normal oral and palatal mucosa present, no drooling and no muffled voice Eyes General: appearance normal, both eyes and all related structures Periorbital: periorbital findings normal Eyelids: Yes eyelids normal Conjunctivae: conjunctivae normal Pupils: Equal, round and reactive pupils present EOM: EOMs intact bilaterally Neck Neck: Yes normal visual inspection, Yes full ROM and Yes no lymphadenopathy Chest Chest palpation & inspection: normal inspection of the chest Resp Effort & Inspection: normal respiratory effort and able to speak in complete sentences GI Inspection: Yes normal to inspection Palpation (GI): Soft to palpation, not firm, Tenderness to palpation present (GI) in the RLQ, no guarding and not rigid Neuro General: patient oriented x3 and moves all extremities Cranial nerves: Yes Equal, round and reactive pupils present Cognition (Neuro): normal cognition Motor exam (neuro): 5/5 motor strength present throughout Sensory Exam: Normal double simultaneous stimulation for sensation Coordination: ugwoto-je-pbpz test normal Extrem General: Yes normal to inspection, Yes full ROM and Yes capillary refill normal Psych Appearance: grossly normal Mental Status: mental status grossly normal Affect: normal affect Attitude: cooperative Thought process: Normal thought process present Thought content: Normal thought content present Insight: Good insight present (Psych) Medications Administered Discontinued Medications Generic Name Dose Route Start Last Admin Trade Name Freq PRN Reason Stop Dose Admin Iohexol 100 ml 01/18/24 19:28 01/18/24 19:29 Iohexol 350 Mg/Ml 100 Ml Infus..Btl IV 01/18/24 19:29 85 ml ONCE ONE Administration Medical Decision Making Medical Decision Making MDM Narrative: Patient is an 83 year old assigned male at with a history of hypercholesterolemia presenting to the emergency department today with RLQ abdominal pain. Patient's physical exam was as noted in the physical exam portion of this note. Patient's blood work was unremarkable. Patient's urine showed no acute process. Patient's abdomen/pelvis CT showed an acute appendicitis. I spoke to Dr. Patel who recommended admission to his service. I explained my physical exam findings as well as all test results to the patient and the patient's . I answered all questions asked by the patient and the patient's . Patient and the patient's verbalized agreement and understanding with this treatment plan and admission. Differential Diagnosis Differential Diagnoses: The differential diagnosis associated with the presentation includes Appendicitis Diverticulitis Abdominal pain Admission/Observation Consideration of admission/observation: Escalation of care including admission/observation considered Patient admitted to the surgical service. Consult Healthcare Provider Management of the patient was discussed with: Rubber Gasket Inspector Trimmer (spoke to the surgeon incident response analyst as noted in the MDM Rationale portion of this note) Lab Data [facility] Lab Attestation statement: I reviewed the patient's lab results. My interpretation of these results are in the MDM Rationale portion of this note. 01/18/24 12:29 01/18/24 12:29 Labs: Lab Results 06/24/24 06/24/24 Range/Units 12:29 12:34 WBC 10.0 (4.8-10.8) X10*3/uL RBC 4.46 L (4.60-5.80) X10*6/uL Hgb 14.3 (14.0-18.0) g/dl Hct 41.6 L (42.0-52.0) % MCV 93.3 (80.0-98.0) fL MCH 32.1 (27.0-33.0) pg MCHC 34.4 (31.0-36.0) g/dl RDW 13.1 (11.0-16.0) % Plt Count 226 (160-400) X10*3/uL MPV 11.5 (9.4-12.4) fL Immature Gran % (Auto) 0.6 H (0.0-0.4) % Neut % (Auto) 76.3 H (45-73) % Lymph % (Auto) 13.7 L (20-40) % [place] % (Auto) 7.2 (2-11) % Eos % (Auto) 1.7 (0-4) % Baso % (Auto) 0.5 (0-2) % Lymph # (Auto) 1.4 (1.2-4.9) X10*3/uL [place] # (Auto) 0.7 (0.1-1.2) X10*3/uL Eos # (Auto) 0.2 (0.0-0.4) X10*3/uL Baso # (Auto) 0.1 (0.0-0.2) X10*3/uL Abs Immat Gran (auto) 0.06 H (0.00-0.03) X10*3/uL Absolute Neuts (auto) 7.6 (2.0-8.3) x10*3/uL Absolute Nucleated RBC 0.000 (0.0-0.012) X10*3/uL Nucleated RBC % (auto) 0.0 (0.0-0.2) /100WBC PT 12.2 (11.1-13.3) SEC INR 1.0 (0.9-1.1) Sodium 142 (135-145) mmol/L Potassium 4.1 (3.3-5.1) mmol/L Chloride 105 (96-108) mmol/L Carbon Dioxide 27 (22-29) mmol/L Anion Gap 14 (12-20) BUN 20 H (9-16) mg/dL Creatinine 0.87 (0.5-1.4) mg/dL Estim Creat Clear Calc 58.0 Estimated GFR > 60 Random Glucose 83 (60-115) mg/dL Calcium 9.7 (8.4-10.2) mg/dL Magnesium 2.1 (1.6-2.6) mg/dL Total Bilirubin 0.4 (0.0-1.0) mg/dL Direct Bilirubin 0.2 (0.0-0.5) mg/dL AST 15 (5-37) U/L ALT 29 (0-40) U/L Alkaline Phosphatase 88 (39-117) U/L Total Protein 7.3 (6.5-8.0) g/dL Albumin 3.8 (3.5-5.0) g/dL Lipase 17 (8-78) U/L Urine Color Dark Yellow Urine Appearance Clear Urine pH 5.5 (5.0-9.0) Ur Specific [place] 1.025 (1.005-1.025) Urine Protein Trace (Neg-Trace) mg/dL Urine Glucose (UA) Negative (Negative) mg/dL Urine Ketones Trace (Negative) mg/dL Urine Blood Negative (Negative) Urine Nitrite Negative (Negative) Ur Leukocyte Esterase Negative (Negative) Independent Interpretation I performed an independent interpretation of an: CT Scan Interpretation: My interpretation is in agreement with the radiologist's impression of this imaging study. - EXAMINATION: CT ABDOMEN AND PELVIS WITH CONTRAST CLINICAL INFORMATION: RLQ pain / guarding, concern for appy COMPARISON: None. TECHNIQUE: Multidetector volumetric imaging was performed from the superior aspect of the liver through the pubic symphysis following administration of 85 mL Omnipaque 300 intravenous contrast. Sagittal and coronal reformatted images were obtained on the technologist workstation.. This CT examination was performed using dose optimization techniques as appropriate, variously including the following: *Automated exposure control *Adjustment of mA and/or kV according to patient size (this includes techniques or standardized protocols for targeted exams where dose is matched to indication/reason for exam; i.e. extremities or head) *Use of iterative reconstruction technique DLP: 430 mGy-cm FINDINGS: LUNG BASES: The visualized lung bases are unremarkable. LIVER, GALLBLADDER, AND BILIARY TREE: The liver is normal in size, shape, and attenuation. No focal hepatic lesion or biliary ductal dilatation is present. The gallbladder is unremarkable with no evidence of radiopaque gallstones, gallbladder wall thickening, or obvious pericholecystic inflammatory changes. PANCREAS: Unremarkable. SPLEEN: Unremarkable. ADRENAL GLANDS: Unremarkable. KIDNEYS AND URETERS: The kidneys are normal in size, shape, and attenuation. Left-sided parapelvic cysts in the right lateral cortical cyst incidentally noted. No hydronephrosis, hydroureter, or perinephric stranding. No calculi. BLADDER: Unremarkable. GASTROINTESTINAL TRACT: The small and large bowel are unremarkable. The appendix is abnormal with significant periappendiceal inflammatory changes. The appendix is abnormally thickened measuring up to 1.3 cm in maximal short axis diameter. I do not appreciate any periappendiceal abscess or drainable collection at this time no obstructive changes to the bowel. ABDOMINAL WALL: No significant hernia is appreciated. LYMPHOVASCULAR STRUCTURES: Vascular calcification within the aorta iliac system. No bulky adenopathy PELVIC VISCERA: Unremarkable. OSSEOUS STRUCTURES: Degenerative changes in the lower lumbar spine CT/CT abdomen pelvis w IV con IMPRESSION: Abnormally thickened appendix with periappendiceal inflammatory changes consistent with acute appendicitis. I do not appreciate any periappendiceal abscess or drainable collection at this time. Dictated By: Satya Avery MD Signed By: Electronically signed by Satya Avery MD 01/18/242030 Radiology Impression Discussion of test interpretation with radiology: I have reviewed the radiologist's reading. Independent Historian Clinical information obtained from an independent historian. History obtained from or confirmed by: Spouse (patient's provided additional history and confirmed the history provided by the patient. ) Critical Care Time Critical Care Time Critical Care Time: Yes Total Critical Care Time: 34 Attestation: I spent 34 minutes of Critical Care Time with this patient. This does not include time spent on separately reported billable procedures. Discharge Plan Discharge Clinical Impression: Acute appendicitis Patient Disposition: Admitted As Inpatient Print Language: Hungarian
[2024-01-18] MEDS: iohexoL 350 MG/ML 100 ML INFUS..BTL IV (19:29)
[2024-01-18 20:25] VITALS: BP 130/71; PULSE 61; RESP 16; O2SAT 96
[2024-01-18 21:00] VITALS: BP 146/73; PULSE 75; RESP 16; TEMP 36.9; O2SAT 98
[2024-01-18] MEDS: 0.9 % Sodium Chloride 1,000 ML 999 ML IV (21:05)
--- NOTE | 2024-01-18 22:03 | PHA.MEDREC ---
Pharmacy Consult ? Medication Reconciliation Pharmacy has completed the medication reconciliation. Confirmed meds with patient.
[2024-01-19] VITALS (14 sets, daily range): BP systolic 113–145; BP diastolic 62–84; PULSE 65–96; RESP 12–18; TEMP 36.5–36.9; O2SAT 94–98; BMI 24.9; BMI 26.6
--- NOTE | 2024-01-19 01:48 | PC.NURSE ---
pt is resting comfortably in stretcher with eyes closed. resp even and unlabored. call singer within reach. awaiting admit orders.
--- NOTE | 2024-01-19 06:19 | PC.NURSE ---
pt denies abd pain at this time. reports feeling some BROTHERS but verbalizes will wait for admission orders from admitting surgeon. pt resting comfortably in stretcher. call singer within reach.
--- NOTE | 2024-01-19 07:23 | PM.HPGS ---
History of Present Illness History of Present Illness Date of Service: 01/19/24 Chief complaint: Abd pain Narrative: Kedar Castellon is a 83 year old male who started this past Thursday (approximately 5 days ago) with nonspecific lower abdominal pain. It waxed and waned and he thought it was improving over the weekend. Because of progression of symptoms, he presented to the emergency department were as workup including CT scan demonstrated acute uncomplicated appendicitis. Patient has never had such symptoms before. He is relatively healthy. His only past surgery is for tonsils in his youth. Chart was reviewed and patient evaluated. White count 10 PMFSH Past Medical History Medical History Anxiety Adult general medical exam URI with cough and congestion Sore throat Tick bite Family History Family History Father No problems noted. Mother No problems noted. Brother No problems noted. Sister No problems noted. Sister No problems noted. Sister No problems noted. Son No problems noted. Surgical History Surgical History Hx of tonsillectomy Social History Social History Housing: Condominium Alcohol intake: current Alcohol intake frequency: holidays/special occasions only Patient Tobacco Use Status: Never used Tobacco Smoked in Last 30 Days: No e-Cigarette/Vaping Use: Never Used Second Hand Smoke Exposure: No Use of substances other than those prescribed or required for medical reasons: No Advance Directives: No Advance Directives Information Provided: No Do you have a plan to hurt others: No Plan service: Yes Current occupational status: retired Current occupational exposures/hazards: No Cognitive needs: No Hearing needs: No Vision needs: Yes (glasses) Meds Allergies Allergy/AdvReac Type Severity Reaction Status Date / Time prednisone [PREDNISONE] Allergy Intermediate EXTREME Verified 01/18/24 10:01 HIVES Home Medications ?Medication ?Instructions ?Recorded ?Confirmed ?Last Taken ?Type cholecalciferol (vitamin D3) 50 50 mcg PO DAILY 10/26/20 01/18/24 01/18/24 History mcg (2,000 unit) capsule multivitamin 1 tab PO DAILY 10/26/20 01/18/24 01/18/24 History acetaminophen 325 mg tablet 325 mg PO DAILY PRN Pain 01/18/24 01/18/24 Unknown History (Tylenol) gobcuyg-kwgbedsvjpeke-fewwadol 250 1 tab PO DAILY PRN Pain 01/18/24 01/18/24 Unknown History mg-250 mg-65 mg tablet (Excedrin Migraine) Physical Exam Vital Signs: Vital Signs: Last Vital Signs Temp 98.5 F 01/19/24 05:58 Pulse 71 01/19/24 05:58 Resp 16 01/19/24 05:58 BP 131/63 01/19/24 05:58 Pulse Ox 98 01/19/24 05:58 O2 Del Method Room Air 01/19/24 05:58 O2 Flow Rate 98 01/18/24 21:00 BMI result Body Mass Index 25.1 Chest: Other: Chest breath sounds bilaterally, HS 1 in 2 GI: Other: Abdomen soft. Localized right lower quadrant rebound tenderness. No evidence of any guarding, rebound, or rigidity. Results Results Labs: Short CBC 01/18/24 Range/Units 12:29 WBC 10.0 (4.8-10.8) X10*3/uL Hgb 14.3 (14.0-18.0) g/dl Hct 41.6 L (42.0-52.0) % Plt Count 226 (160-400) X10*3/uL BMP 01/18/24 12:29 Sodium 142 Potassium 4.1 Chloride 105 Carbon Dioxide 27 BUN 20 H Creatinine 0.87 Calcium 9.7 Liver Function 01/18/24 Range/Units 12:29 Total Bilirubin 0.4 (0.0-1.0) mg/dL Direct Bilirubin 0.2 (0.0-0.5) mg/dL AST 15 (5-37) U/L ALT 29 (0-40) U/L Alkaline Phosphatase 88 (39-117) U/L Albumin 3.8 (3.5-5.0) g/dL Urine 01/18/24 Range/Units 12:34 Urine Color Dark Yellow Urine Appearance Clear Urine pH 5.5 (5.0-9.0) Ur Specific [place] 1.025 (1.005-1.025) Urine Protein Trace (Neg-Trace) mg/dL Urine Glucose (UA) Negative (Negative) mg/dL Assessment and Plan (1) Acute appendicitis: Status: Acute Plan Risks, benefits, and alternatives laparoscopic possible open appendectomy were reviewed with the patient and included but not limited to bleeding, infection, numbness, pain, scarring, bowel or bladder injury or leak and the patient wishes to proceed with the procedure. All questions answered. Arrangements removed be made for this for today on the ?add on? schedule Quality Stroke Does the patient have a stroke diagnosis?: No VTE Prior VTE?: No VTE Risk Level:: Surgical - low VTE Device Contraindication: N/A - Device Ordered VTE Drug Contraindication: Treatment Not Indicated Procedures Date of Service Date of Service: 01/19/24
[2024-01-19] MEDS: cefTRIAXone sodium 1 GM in 0.9 % Sodium Chloride 50 ML IV ×2 (07:58→20:32)
--- NOTE | 2024-01-19 08:01 | PC.NURSE ---
assumed care of this patient at 0700, patient resting quietly in ED stretcher, IV patent and intact in the right AC. patient medicated per SEP. patient is a&ox4, VSS, respirations equal and unlabored, skin dry and intact.
--- NOTE | 2024-01-19 13:04 | PC.NURSE ---
Patient's IV was inserted in ER. Patent.
--- NOTE | 2024-01-19 13:12 | PC.NURSE ---
Dr. Lewis aware that patient cannot remove ring from left finger. patient educated by her. vlad sharp in chart.
--- NOTE | 2024-01-19 13:16 | P.CONAN_ITS ---
HPI - Anesthesia Eval Consult details Narrative: for blaine HANDLEYSH Active Problems Active Problems: All Active Problems Acute appendicitis (Acute) Cough (Acute) Difficulty hearing (Acute) Impaired glucose tolerance (Acute) COVID-19 virus infection (Acute) Overweight (BMI 25.0-29.9) (Acute) LFT elevation (Acute) Hypercholesterolemia (Acute) Past Medical History Medical History Anxiety Adult general medical exam URI with cough and congestion Sore throat Tick bite Family History Family History Father No problems noted. Mother No problems noted. Brother No problems noted. Sister No problems noted. Sister No problems noted. Sister No problems noted. Son No problems noted. Family history of problems with anesthesia: No Surgical History Surgical History Hx of colonoscopy Hx of bilateral cataract extraction Hx of tonsillectomy History of Problems with Anesthesia: No Social History Social History Housing: Condominium Alcohol intake: current Alcohol intake frequency: holidays/special occasions only Patient Tobacco Use Status: Never used Tobacco Smoked in Last 30 Days: No e-Cigarette/Vaping Use: Never Used Second Hand Smoke Exposure: No Use of substances other than those prescribed or required for medical reasons: No Are you DNR?: No Advance Directives: No Advance Directives Information Provided: No Do you have a plan to hurt others: No Plan Nutrition Risks: No Nutritional Risk service: Yes Current occupational status: retired Current occupational exposures/hazards: No Cognitive needs: No Hearing needs: No Vision needs: Yes (glasses) Meds Allergies Allergy/AdvReac Type Severity Reaction Status Date / Time prednisone [PREDNISONE] Allergy Intermediate EXTREME Verified 01/19/24 12:34 HIVES Active Medications: Current Medications Ceftriaxone Sodium 1 gm/ (Sodium Chloride) 50 mls @ 100 mls/hr IV Q12H AMANDA Last Infusion: 01/19/24 08:25 Dose: Infused Home Medications ?Medication ?Instructions ?Recorded ?Confirmed ?Last Taken ?Type cholecalciferol (vitamin D3) 50 50 mcg PO DAILY 10/26/20 01/18/24 01/18/24 History mcg (2,000 unit) capsule multivitamin 1 tab PO DAILY 10/26/20 01/18/24 01/18/24 History acetaminophen 325 mg tablet 325 mg PO DAILY PRN Pain 01/18/24 01/18/24 Unknown History (Tylenol) taeefzo-tlmonzlqmufbb-mrawncrt 250 1 tab PO DAILY PRN Pain 01/18/24 01/18/24 Unknown History mg-250 mg-65 mg tablet (Excedrin Migraine) Exam Height,Weight and Vital Signs: Height 5 ft 6 in Weight 69.853 kg Last Vital Signs Temp 98.1 F 01/19/24 12:56 Pulse 78 01/19/24 12:56 Resp 18 01/19/24 12:56 BP 118/71 01/19/24 12:56 Pulse Ox 97 01/19/24 12:56 O2 Del Method Room Air 01/19/24 12:56 O2 Flow Rate 98 01/18/24 21:00 Pertinent Lab Results Pertinent Lab Results: Laboratory Tests 01/18/24 01/18/24 12:29 12:34 WBC 10.0 RBC 4.46 L Hgb 14.3 Hct 41.6 L MCV 93.3 MCH 32.1 MCHC 34.4 RDW 13.1 Plt Count 226 MPV 11.5 Immature Gran % (Auto) 0.6 H Neut % (Auto) 76.3 H Lymph % (Auto) 13.7 L Mcculloch % (Auto) 7.2 Eos % (Auto) 1.7 Baso % (Auto) 0.5 Lymph # (Auto) 1.4 Mcculloch # (Auto) 0.7 Eos # (Auto) 0.2 Baso # (Auto) 0.1 Abs Immat Gran (auto) 0.06 H Absolute Neuts (auto) 7.6 Absolute Nucleated RBC 0.000 Nucleated RBC % (auto) 0.0 PT 12.2 INR 1.0 Sodium 142 Potassium 4.1 Chloride 105 Carbon Dioxide 27 Anion Gap 14 BUN 20 H Creatinine 0.87 Estim Creat Clear Calc 58.0 Estimated GFR > 60 Random Glucose 83 Calcium 9.7 Magnesium 2.1 Total Bilirubin 0.4 Direct Bilirubin 0.2 AST 15 ALT 29 Alkaline Phosphatase 88 Total Protein 7.3 Albumin 3.8 Lipase 17 Urine Color Dark Yellow Urine Appearance Clear Urine pH 5.5 Ur Specific [place] 1.025 Urine Protein Trace Urine Glucose (UA) Negative Urine Ketones Trace Urine Blood Negative Urine Nitrite Negative Ur Leukocyte Esterase Negative Airway Mallampati Class: III (stiff neck , small mouth opening ) TM Dist: <=3cm Neck ROM: Poor Heart: rrr Lungs: cta Assessment and Plan Assessment Anesthesia Assessment: Anesthesia Plan Discussed and Chart Reviewed Final Anesthetic Review Family History of Problems with Anesthesia: No History of Problems with Anesthesia: No NPO: Yes ASA Class: II Final Preanesthetic Review: No Changes in Pt Med Stat, Meds/Allgs Chart Reviewed, Consent Obtained/Reviewed and Anes Risks/Benef Reviewed Patient Risk: Low Procedure Risk: Low Anesthetic Plan Anesthetic Plan: GA Disposition: Standard PACU
--- NOTE | 2024-01-19 14:52 | P.OP_ITS ---
Operative Note Operative Note Date of Service: 01/19/24 Narrative: Preoperative diagnosis: [] Acute appendicitis Postop diagnosis: [] Acute phlegmonous appendicitis Procedure laparoscopic appendectomy Surgeon: Rosalinda Monitoring Manager: [] Celso Type of Anesthesia: [] General Indication for surgery: [] Markedly phlegmonous macerated appendix adhered to the pelvic sidewall and retrocecal area Findings: [] Patient brought to the operating room, placed on operative table in supine position, after adequate level of general anesthesia was induced, the patient's abdomen is prepped and draped in usual sterile fashion. Using a supraumbilical curvilinear incision, Gonzalez technique was used to insufflate abdominal cavity to 15 mm of CO2. Lower midline and suprapubic ports were placed under direct laparoscopic view, the patient was placed in Trendelenburg position, and tilted to the left. Findings were as noted above. Cecum was identified and retrocecal macerated phlegmonous appendix was brought onto the field by taking down the adhesions of this to the pelvic sidewall and retrocecal. Appendix literally fell apart during grasping. The mesentery and cecal appendiceal base were identified and taken down with ligature device and BENITO stapler respectively. The latter was soft and viable and non phlegmonous. Specimen in piece meal fashioned was placed in an Endo-Catch bag, and retrieved through the umbilical port. Abdominal cavity was very copiously irrigated and secured hemostasis. A Marcin-Be drain was left in the region of the staple line exited through the suprapubic port. This was secured the skin using 2-0 nylon. Remaining ports removed under direct laparoscopic view. Wounds were closed in the following manner; umbilical wound had its fascia reapproximated using interrupted 0 Vicryl sutures. Skin wounds were closed using subcuticular 4-0 Vicryl sutures followed by Steri-Strips and sterile dressings. Wounds were infiltrated 0.5% Marcaine at completion. Sponge, needle, and instrument counts reported correct. Patient tolerated the procedure well and emerged from anesthesia stable condition. EBL minimal
[2024-01-19] MEDS: 0.9 % Sodium Chloride Flush 3 ML SYRINGE IVFLUSH (16:20)
[2024-01-19] MEDS: Lactated Ringers 1,000 ML 80 ML IVCONT (16:20)
--- NOTE | 2024-01-19 16:48 | PHA.MEDREC ---
Pharmacy Consult ? Medication Reconciliation Pharmacy has completed the medication reconciliation. Confirmed medications with patient.
[2024-01-19] MEDS: Docusate Sodium 100 MG CAPSULE PO (20:23)
[2024-01-19] MEDS: Atorvastatin Calcium 40 MG TABLET PO (20:24)
[2024-01-19] MEDS: Acetaminophen 325 MG TABLET 975 MG PO (20:45)
[2024-01-20 03:24] VITALS: BP 101/62; PULSE 66; RESP 16; TEMP 36.3; O2SAT 96
[2024-01-20] MEDS: Acetaminophen 325 MG TABLET 975 MG PO (04:05)
[2024-01-20] MEDS: Lactated Ringers 1,000 ML 80 ML IVCONT (05:02)
--- NOTE | 2024-01-20 07:42 | PM.PNGS ---
Subjective Subjective Date of Service: 01/20/24 Interval history: Feels well this morning, improved. Mild incisional and RLQ pain. Tolerating liquids and feels hungry. OOB and ambulating without difficulty. Physical Exam Vital Signs: Vital Signs: Last Vital Signs Temp 97.4 F 01/20/24 03:24 Pulse 66 01/20/24 03:24 Resp 16 01/20/24 03:24 BP 101/62 01/20/24 03:24 Pulse Ox 96 01/20/24 03:24 O2 Del Method Room Air 01/20/24 03:24 O2 Flow Rate 2 01/19/24 15:30 BMI result Body Mass Index 26.6 Const: General: comfortable, no acute distress and alert Orientation/consciousness: patient oriented x3 Resp: Effort & Inspection: normal respiratory effort GI: Other: GIOVANI drain with scant serosanguineous drainage Inspection: No distended and Yes incision (dressings clean/intact) Palpation (GI): Soft to palpation, Tenderness to palpation present (GI) (mild RLQ/incisional) and no guarding Skin: General skin exam: no rashes or lesions noted Neuro: General: patient oriented x3 Objective Data Active Medications Acetaminophen (Acetaminophen 325 Mg Tablet) 975 mg PO Q6H PRN PRN Reason: Pain, Mild (Pain Scale 1-3), fever or headache Last Admin: 01/20/24 04:05 Dose: 325 mg Documented By: DAI Comments: pt only wants to take 1 tablet 325mg Acetaminophen/Butalbital/Caffeine (Butalb/Acetamin/Caff 50/325/40 Tablet) 1 tab PO Q4H PRN PRN Reason: headache Atorvastatin Calcium (Atorvastatin Calcium 40 Mg Tablet) 40 mg PO BEDTIME [facility] Last Admin: 01/19/24 20:24 Dose: 40 mg Documented By: DAI Calcium Carbonate (Calcium Carbonate 750 Mg Tab.Chew) 750 mg PO Q4H PRN PRN Reason: Heartburn Docusate Sodium (Docusate Sodium 100 Mg Capsule) 100 mg PO BID [facility] Last Admin: 01/19/24 20:23 Dose: 100 mg Documented By: DAI Heparin Sodium (Porcine) (Heparin Sodium,Porcine 5,000 Unit/Ml Vial) 5,000 unit SUBCUT Q12H [facility] Ceftriaxone Sodium 1 gm/ (Sodium Chloride) 50 mls @ 100 mls/hr IV Q12H [facility] Last Infusion: 01/19/24 21:37 Dose: Infused Documented By: DAI Lactated Ringer's (Lr) 1,000 mls @ 80 mls/hr IVCONT .[id number] [facility] Last Admin: 01/20/24 05:02 Dose: 80 mls/hr Documented By: DAI Magnesium Hydroxide (Milk Of Magnesia 30 Ml Oral.Susp) 30 ml PO DAILY PRN PRN Reason: Constipation Melatonin (Melatonin 3 Mg Tablet) 6 mg PO BEDTIME PRN PRN Reason: Insomnia Morphine Sulfate (Morphine Sulfate 4 Mg/Ml Cartridge) 4 mg IVPUSH Q4H PRN; Protocol PRN Reason: Pain, Severe (Pain Scale 7-10) Ondansetron HCl (Ondansetron Hcl 4 Mg/2 Ml Vial) 4 mg IVPUSH Q8H PRN PRN Reason: Nausea and Vomiting Oxycodone HCl (Oxycodone Hcl Immed Release 5 Mg Tablet) 5 mg PO Q4H PRN PRN Reason: Pain, Moderate(Pain Scale 4-6) Sodium Chloride (0.9 % Sodium Chloride Flush 3 Ml Syringe) 3 ml IVFLUSH QSHIFT [facility] Last Admin: 01/20/24 07:02 Dose: Not Given Documented By: RAPHAELEMA Non-Admin Reason: IV Running Labs 01/18/24 12:29 01/18/24 12:29 Procedures Date of Service Date of Service: 01/20/24 Progress Note: A&P Assessment and plan (1) Acute appendicitis: Status: Acute (2) S/P laparoscopic appendectomy: Status: Acute Plan POD #1 s/p lap appy for Acute phlegmonous appendicitis. Doing well post op. VSS. Abd exam benign with appropriate post op tenderness, dressings c/d/i. Will advance to solid diet. If tolerating, stable for dc to home later today. Patient comfortable with plan. Will remove GIOVANI drain prior. Time Spent With Patient Time: Total time managing care of this patient today ____ minutes. Quality Stroke Does the patient have a stroke diagnosis?: No VTE Prior VTE?: No VTE Risk Level:: Surgical - high VTE Device Contraindication: N/A - Device Ordered VTE Drug Contraindication: N/A - Med Ordered
[2024-01-20 07:49] VITALS: BP 126/61; PULSE 73; RESP 16; TEMP 36.2; O2SAT 96
[2024-01-20] MEDS: Docusate Sodium 100 MG CAPSULE PO (08:05)
[2024-01-20] MEDS: cefTRIAXone sodium 1 GM in 0.9 % Sodium Chloride 50 ML IV (08:05)
--- NOTE | 2024-01-20 09:52 | MHC.CM.PN ---
Addendum entered by Linnea Jordan RN 01/20/24 10:46: Patient medically cleared for dc home self care. to transport. Original Note: Patient lives in a home w/ his . Functionally independent. Denies use of DME or services. PCP Dr Hills Patient reports he has an HCP, w/ Adrian listed as [facility] and friend Cesar listed as alternate. Copy requested. DP: Goal is home self care, may dc today if tolerating diet. to transport. CM will continue to follow.
--- NOTE | 2024-01-20 10:17 | HO.POSTANES ---
Post Anesthesia Evaluation Post Anesthesia Evaluation Date of Service: 01/19/24 Vital Signs: Vital Signs Temp Pulse Resp BP Pulse Ox O2 Del Method 01/20/24 07:49 97.1 F 73 16 126/61 96 Room Air 01/20/24 03:24 97.4 F 66 16 101/62 96 Room Air Anesthesia: General Mental Status: Awake Pain Control: Satisfactory Nausea/Vomiting: None Hydration: Adequate Anesthesia-Related Issues: No Anes. Related Issues
--- NOTE | 2024-01-20 10:45 | PM.DS ---
DS: Providers Provider Date of Service: 01/20/24 Date of admission: 01/19/24 14:53 Date of discharge: 01/20/24 Primary care physician: Arley Hills MD Attending physician on admission: Juan Manuel Patel Attending physician on discharge: Juan Manuel Patel DS: Diagnosis Discharge Diagnosis (1) Acute appendicitis: Status: Acute (2) S/P laparoscopic appendectomy: Status: Acute DS: Summary Hospital Course Hospital Course: HPI AT ADMISSION: Kedar Castellon is a 83 year old male who started this past Thursday (approximately 5 days ago) with nonspecific lower abdominal pain. It waxed and waned and he thought it was improving over the weekend. Because of progression of symptoms, he presented to the emergency department were as workup including CT scan demonstrated acute uncomplicated appendicitis. Patient has never had such symptoms before. He is relatively healthy. His only past surgery is for tonsils in his youth. Chart was reviewed and patient evaluated. White count 10. HOSPITAL COURSE: The patient was admitted to the surgical service for further treatment of the acute appendicitis. He elected to proceed with laparoscopic appendectomy and was added onto the OR schedule for that day. On 01/19/24, a laparoscopic appendectomy was performed by Dr. Patel without complication. The patient was found to have acute phlegmonous appendicitis. The patient tolerated the procedure well. He had an uncomplicated recovery course. On POD #1, he felt well and was tolerating a solid diet without nausea or vomiting, had good pain control and was ambulating without difficulty. He was hemodynamically stable. His abdomen was benign with appropriate post op tenderness and clean and intact dressings. His GIOVANI drain had small amount of serosanguineous drainage. This was removed uneventfully. He felt ready for discharge. He was discharged to home on 01/20/24 in stable condition. He is to follow up in the office in 1 week. Status at Discharge Functional status at discharge: independent ambulation Overall status at discharge: patient is progressing back to baseline Time Attestation Discharge Coordination Time (in mins): 30 Quality: Safe Use of Opioids Does Pt have an Active Cancer Diagnosis on the Problem List?: No Quality: Stroke Does the patient have a stroke diagnosis?: No Physical Exam Vital Signs: Vital Signs: Last Vital Signs Temp 97.1 F 01/20/24 07:49 Pulse 73 06/26/24 07:49 Resp 16 01/20/24 07:49 BP 126/61 01/20/24 07:49 Pulse Ox 96 01/20/24 07:49 O2 Del Method Room Air 01/20/24 07:49 O2 Flow Rate 2 01/19/24 15:30 BMI result Body Mass Index 26.6 Const: General: comfortable, no acute distress and alert Orientation/consciousness: patient oriented x3 Resp: Effort & Inspection: normal respiratory effort GI: Other: GIOVANI drain with serosanguineous output, removed Inspection: No distended and Yes incision (dressings clean) Palpation (GI): Soft to palpation, Tenderness to palpation present (GI) (mild incisional, RLQ) and no guarding Skin: General skin exam: no rashes or lesions noted Neuro: General: patient oriented x3 and moves all extremities DS: Data Data Completed and Pending Pending studies at discharge: Pending at discharge 01/19/24 14:14 Surgical [PTH] Routine Discharge Plan Discharge Anticipated Discharge Date/Time: 01/20/24 10:40 Patient Disposition: Home, Self-Care Discharge Diagnosis: acute appendicitis s/p laparoscopic appendectomy Referrals: Arley Hills MD [Primary Care Provider] - 1 Week Juan Manuel Patel MD [Physician] - 1 Week Discharge Medications: New docusate sodium [Colace] 100 mg capsule 100 mg PO BID Qty: 30 0RF oxycodone 5 mg tablet 5 mg PO Q4H PRN (Reason: pain (scale score 7-10)) Qty: 24 0RF Rx Instructions: Partial Fill upon patient request. Continued atorvastatin 40 mg tablet 40 mg PO DAILY 90 Days Qty: 90 3RF Excedrin Migraine 250-250-65 mg Tablet 1 tab PO DAILY PRN (Reason: Pain) chlorpheniramine maleate 4 mg Tablet 4 mg PO Q4H PRN (Reason: allergies) multivitamin Tablet 1 tab PO DAILY cholecalciferol (vitamin D3) 50 mcg (2,000 unit) capsule 50 mcg PO DAILY Discharge Orders: Discharge Order (Routine); Ordered 01/20/24 Ordered By: Anai Houston Diet: Advance to usual diet Activity on Discharge: No heavy lifting Stand Alone Forms: Patient Portal Discharge page Print Language: Peruvian Activity Restrictions/Additional Instructions: Apply an ice pack for short intervals (20 minutes on, followed by at least 20 minutes off) for the first 2 days. Do not apply heat. Do not use creams, lotions, or topical antibiotics. These can cause infection or allergic reaction. Ok to shower 48 hours after your surgery. Remove dressings in 2 days and replace as needed. You have steri strips (small white cloth strips) covering your incision- these will fall off ~1 week. Follow up in office with Dr. Patel in 1 week. ([phone]) No heavy lifting (>10lbs) or strenuous activity! Call Your Doctor If: -Your temperature exceeds 101.5? F -You experience excessive pain or swelling -You have an unexpected reaction to medication -You have excessive bleeding -You experience continued vomiting/nausea -Your incision begins to separate -Your incision shows signs of infection such as increased redness, swelling, excessive pain, drainage (light blood or clear fluid is normal) or heat Care Plan Goals: Return to baseline health and resume normal activities following recovery period. Health Concerns: acute appendicitis Plan of Treatment: s/p laparoscopic appendectomy f/u in office in 1 week Assessment: Doing well post op.
[2024-01-20] MEDS: polyethylene glycoL 3350 17 GM POWD.PACK PO (11:24)
== END 2024-01-20 12:43 | disposition home or self-care (01) ==
LOC: HO.ED 01-19 12:21 → HO.SSS 01-19 13:11 → HO.SSSA 01-19 14:54 → HO.S3 01-19 15:01
PROVIDERS: Emergency Medicine; Surgery; Admitting Provider Physician Assistant Surgical; Emergency Provider Internal Medicine; PCP Internal Medicine; Visit Provider Physician Assistant Surgical
PROC: 0DTJ4ZZ Resection of Appendix, Percutaneous Endoscopic Approach (ICD-10-PCS; CPT 44970; principal; 2024-01-19 13:30)
DX: K35.80 Unspecified acute appendicitis (principal); Z90.49 Acquired absence of other specified parts of digestive tract; R10.31 Right lower quadrant pain; E78.00 Pure hypercholesterolemia, unspecified
CPT/HCPCS: 44970; 36415; 74177; 80048; 80076; 81003; 83690; 83735; 85025; 85610; 88304; 96361; 96365; 96366; 99221; 99285; J0696; J1100; J2405; J2704; J2795; J3010; J7120; Q9967

== ENCOUNTER → 2024-01-18 17:39 | Outpatient (BNV) | payer MEDICARE, SELFPAY | PROVIDERS: Emergency Provider Internal Medicine; PCP Internal Medicine; Visit Provider Surgery | DX: K35.80 Unspecified acute appendicitis (principal); Z90.49 Acquired absence of other specified parts of digestive tract | CPT/HCPCS: 44970; 99024; 99222 ==

== ENCOUNTER 2024-01-26 11:28 | Outpatient (AMB) | payer MEDICARE, SELFPAY ==
--- NOTE | 2024-01-26 11:31 | A.OFFVIS_ITS ---
Intake Visit Reasons: s/p lap appy Intake Note: Patient here s/p lap appy. Reports incision healing well. Patient c/o: denies pain or discomfort. SX: 01-19-2024 Photolithographer Required: No Accompanied by: Self / Same As Patient Allergies prednisone [PREDNISONE] Allergy (Intermediate, Verified 01/26/24 11:32) EXTREME HIVES HPI Comments Details: Patient is doing well. He has tolerating a diet. Having regular bowel habits with Colace supplementation. Increasing his activity level. Minimal incisional discomfort PFSH Medical History (Updated 01/26/24 @ 11:38 by Juan Manuel Patel MD) Anxiety Adult general medical exam URI with cough and congestion Sore throat Tick bite Surgical History (Updated 01/26/24 @ 00:02 by Sandrine Oglesby) History of laparoscopic appendectomy (01/19/24) Hx of colonoscopy Hx of bilateral cataract extraction Hx of tonsillectomy Family History Father No problems noted. Mother No problems noted. Brother No problems noted. Sister No problems noted. Sister No problems noted. Sister No problems noted. Son No problems noted. Social History Household Members: Spouse Housing: House Alcohol intake: current Alcohol intake frequency: holidays/special occasions only Patient Tobacco Use Status: Never used Tobacco e-Cigarette/Vaping Use: Never Used Second Hand Smoke Exposure: No service: No Current occupational status: retired Current occupational exposures/hazards: No Cognitive needs: No Hearing needs: No Vision needs: Yes (glasses) Physical Exam GI Other: Abdomen is soft. All wounds clean dry and intact. Resolving ecchymosis the umbilical site. Assessment & Plan Assessment & Plan (1) S/P laparoscopic appendectomy: Code(s): Z90.49 - Acquired absence of other specified parts of digestive tract Category: Medical (2) Postop check: Code(s): Z09 - Encounter for follow-up examination after completed treatment for conditions other than malignant neoplasm Category: Medical Plan Patient is doing well. He has been given local instructions, including avoiding strenuous activities for next few weeks time and will otherwise follow-up p.r.n.. All questions answered. Coding Level of Care Code Global (81763) Diagnoses S/P laparoscopic appendectomy Z90.49 Postop check Z09
== END 2024-01-26 11:37 | disposition home or self-care (01) ==
PROVIDERS: PCP Internal Medicine; Visit Provider Surgery
DX: Z90.49 Acquired absence of other specified parts of digestive tract (principal); Z09 Encounter for follow-up examination after completed treatment for conditions other than malignant neoplasm
CPT/HCPCS: 99024

== ENCOUNTER → 2024-01-26 11:28 | Outpatient (BNVA) | payer MEDICARE, SELFPAY | PROVIDERS: PCP Internal Medicine; Visit Provider Surgery | DX: Z09 Encounter for follow-up examination after completed treatment for conditions other than malignant neoplasm (principal); Z90.49 Acquired absence of other specified parts of digestive tract | CPT/HCPCS: 99212 ==

== ENCOUNTER 2024-02-02 09:23 | Outpatient (AMB) | payer MEDICARE, SELFPAY ==
--- NOTE | 2024-02-02 09:29 | A.OFFVIS_ITS ---
Intake Visit Reasons: Check incision, discharge Intake Note: Patient here s/p lap appy. C/o yellowish discharge from lower umbilical scar. Feels tender to touch. SX: 01-19-2024. Panel Lay Up Worker Required: No Accompanied by: Spouse Allergies prednisone [PREDNISONE] Allergy (Intermediate, Verified 02/02/24 09:30) EXTREME HIVES HPI Comments Details: Patient presents with his . He was extruding some discharge from the right lateral aspect of the umbilical incision. Otherwise he is doing well. Tolerating diet. Having regular bowel habits. Minimal incisional discomfort. Increasing his activity level. [facility] Medical History (Updated 01/26/24 @ 00:02 by Sandrine Oglesby) Anxiety Adult general medical exam URI with cough and congestion Sore throat Tick bite Surgical History (Updated 02/02/24 @ 09:56 by Juan Manuel Patel MD) History of laparoscopic appendectomy (01/19/24) Hx of colonoscopy Hx of bilateral cataract extraction Hx of tonsillectomy Family History Father No problems noted. Mother No problems noted. Brother No problems noted. Sister No problems noted. Sister No problems noted. Sister No problems noted. Son No problems noted. Social History Household Members: Spouse Housing: House Alcohol intake: current Alcohol intake frequency: holidays/special occasions only Patient Tobacco Use Status: Never used Tobacco e-Cigarette/Vaping Use: Never Used Second Hand Smoke Exposure: No service: No Current occupational status: retired Current occupational exposures/hazards: No Cognitive needs: No Hearing needs: No Vision needs: Yes (glasses) Physical Exam GI Other: Patient is extruding a suture the right lateral aspect that was umbilical incision. Other incisions clean dry and intact. No evidence of any infection or abscess or cellulitis Assessment & Plan Assessment & Plan (1) Postoperative stitch abscess: Code(s): T81.41XA - Infection following a procedure, superficial incisional surgical site, initial encounter Category: Surgical (2) Postop check: Code(s): Z09 - Encounter for follow-up examination after completed treatment for conditions other than malignant neoplasm Category: Surgical Plan Suture was uneventfully removed the bacitracin dressing applied. Patient and significant other have been given local instructions, patient otherwise follow- up p.r.n.. All questions answered. Coding Level of Care Code Global (10636) Diagnoses Postoperative stitch abscess T81.41XA Postop check Z09
== END 2024-02-02 09:45 | disposition home or self-care (01) ==
PROVIDERS: PCP Internal Medicine; Visit Provider Surgery
DX: T81.41XA Infection following a procedure, superficial incisional surgical site, initial encounter (principal); Z09 Encounter for follow-up examination after completed treatment for conditions other than malignant neoplasm
CPT/HCPCS: 99024

== ENCOUNTER → 2024-02-02 09:23 | Outpatient (BNVA) | payer MEDICARE, SELFPAY | PROVIDERS: PCP Internal Medicine; Visit Provider Surgery | DX: Z09 Encounter for follow-up examination after completed treatment for conditions other than malignant neoplasm (principal); T81.41XA Infection following a procedure, superficial incisional surgical site, initial encounter | CPT/HCPCS: 99212 ==

== ENCOUNTER 2024-04-05 08:54 | Outpatient (AMB) | payer MEDICARE, SELFPAY ==
--- NOTE | 2024-04-05 08:56 | AM.OFFVISMDC ---
Intake Vital Signs 04/05/24 09:00 Height 5 ft 6 in Weight 159 lb 8 oz BMI 25.7 BP 130/62 Blood Pressure Location Lt brachial Position Sitting Pulse 88 Pulse Source Pulse Oximeter Pulse Oximetry (%) 98 Oxygen Delivery Method Room Air Intake Visit Reasons: [facility] [id number] Intake Note: Patient is here for an Annual Wellness Visit. Content Management Specialist Required: No Private Equity Analyst: Private Equity Analyst offered & declined Accompanied by: Self / Same As Patient Allergies No Known Allergies Allergy (Verified 04/05/24 09:24) Medication List - Last Reconciled 04/05/24 by Lyssa Cordero PA-C [id number] 250-250-65 mg (Excedrin Migraine) 1 tab PO DAILY PRN atorvastatin 40 mg PO DAILY 90 days chlorpheniramine maleate 4 mg PO Q4H PRN cholecalciferol (vitamin D3) 50 mcg PO DAILY docusate sodium (Colace) 100 mg PO BID multivitamin 1 tab PO DAILY HPI SWV G0439 HPI Details 83-year-old male with past medical history of hypercholesterolemia and impaired glucose tolerance last seen by Dr. Hills for annual wellness visit.? In review of the notes, patient was seen in [facility] 01/19/2024 with lower abdominal pain ED showed evidence of uncomplicated appendicitis and was admitted for laparoscopic appendectomy.? Appendectomy was performed 01/19/[address] Patel without complication followed by an uncomplicated hospital course and discharged home 01/20/2024.? Patient was seen postoperatively 01/26/2024 by General surgery given instructions to avoid strenuous activity and follow up as needed Patient states he is feeling generally well in his back to his normal diet and exercise. He has no acute concerns today. [facility] Medical History (Updated 04/05/24 @ 09:42 by Lyssa Cordero PA-C) Anxiety Adult general medical exam URI with cough and congestion Sore throat Tick bite Surgical History History of laparoscopic appendectomy (01/19/24) Hx of colonoscopy Hx of bilateral cataract extraction Hx of tonsillectomy Family History Father No problems noted. Mother No problems noted. Brother No problems noted. Sister No problems noted. Sister No problems noted. Sister No problems noted. Son No problems noted. Social History Household Members: Spouse Housing: House Alcohol intake: current Alcohol intake frequency: holidays/special occasions only Patient Tobacco Use Status: Never used Tobacco e-Cigarette/Vaping Use: Never Used Second Hand Smoke Exposure: No service: No Current occupational status: retired Current occupational exposures/hazards: No Cognitive needs: No Hearing needs: No Vision needs: Yes (glasses) Questionnaire Medicare Wellness Checkup What is your age?: 80 or older What gender do you identify with?: male During the past 4 weeks, how much have you been bothered by emotional problems such as feeling anxious, depressed, irritable, sad or downhearted, and blue?: extremely During the past 4 weeks, has your physical & emotional health limited your social activities with family, friends, neighbors, or groups?: not at all During the past 4 weeks, how much bodily pain have you generally had?: moderate pain During the past 4 weeks, was someone available to help you if you needed & wanted help?: yes, as much as I wanted During the past 4 weeks, what was the hardest physical activity you could do for at least 2 minutes?: very heavy Can you get to places out of walking distance without help? (For eg., can you travel alone on buses, taxis or drive your car?): Yes Can you go shopping for groceries or clothes without someone's help?: Yes Can you prepare your own meals?: Yes Can you do your housework without help?: Yes Because of any health problems, do you need the help of another person with your personal care needs such as eating, bathing, dressing or getting around the house?: Yes Can you handle your own money without help?: Yes During the past 4 weeks, how would you rate your health in general?: very good During the past 4 weeks how have things been going for you?: pretty well Are you having difficulties driving your car?: no Do you always fasten your seat belt when you are in a car?: yes, usually During past 4 weeks, have you been bothered by the following: never: Falling or dizzy when standing up, Sexual problems?, Trouble eating well?, Teeth or denture problems?, Problems using the telephone? and Tiredness or fatigue? Have you fallen 2 or more times in the past year?: No Are you afraid of falling?: Yes Are you a smoker?: no During the past 4 weeks, how many drinks of wine, beer, or other alcoholic beverages did you have?: 1 drink or less per week Do you exercise for about 20 minutes 3 or more times a week?: yes, some of the time Have you been given information to help with the following?: yes: Keeping track of your medications? and no: Hazards in your house that might hurt you? How often do you have trouble taking medicines the way you have been told to take them?: I always take medicine as prescribed How confident are you that you can control & manage most of your health problems?: very confident What is your race?: White Thrive Questionnaire Date Thrive assessed: 01/20/24 CHELSEA-7 AMB Questionnaire CHELSEA-7 Date CHELSEA - 7 assessed: 09/14/23 Source: Developed by Drs. Tod Og, Vivienne Verma, Estrada Granado and colleagues, with an educational eugenie from [employer]. Review of Systems Const Denies body aches, Denies fatigue, Denies fever(s), Denies frequent falls, Denies headache(s) and Denies weakness Eyes Details: eye doctor every 6 months Reports no additional complaints, Denies change in vision and Reports requires corrective lenses ENT Denies dysphagia, Denies dizziness, Denies facial pain, Denies headache(s), Denies nasal congestion and Denies odynophagia Card Denies chest pain, Denies syncope, Denies irregular heart rhythm, Denies leg edema, Denies lightheadedness and Denies dyspnea Resp Denies cough and Denies dyspnea GI Denies constipation, Denies dysphagia, Denies dyspepsia, Denies diarrhea, Denies nausea, Denies odynophagia and Denies vomiting Denies dysuria, Denies urinary frequency, Denies urinary hesitancy and Denies urinary urgency Musc Denies back pain and Denies myalgias Skin/Breast Reports system reviewed and no additional complaints, except as documented Neuro Denies dizziness, Denies syncope, Denies frequent falls, Denies headache(s) and Denies weakness Psych Reports no additional complaints Endo Denies fatigue Physical Exam Vital Signs: Last Vital Signs Pulse 88 04/05/24 09:00 BP 130/62 04/05/24 09:00 Pulse Ox 98 04/05/24 09:00 Oxygen Delivery Method Room Air 04/05/24 09:00 BMI result Body Mass Index 25.7 Const General: cooperative, healthy appearing, comfortable and no acute distress Orientation/consciousness: patient oriented x3 HEENT Head: Yes normocephalic Ears: hearing grossly normal bilaterally, external ears normal, TM's normal bilaterally and EAC's normal General nose exam: Normal external nose present Face and sinus: Yes normal facial exam and Yes sinuses nontender Mouth: Normal oral and palatal mucosa present and tongue normal Throat: Yes posterior oropharynx normal Eyes General: appearance normal, both eyes and all related structures Conjunctivae: conjunctivae normal Pupils: Equal, round and reactive pupils present EOM: EOMs intact bilaterally and No Nystagmus present Neck Neck: Yes normal visual inspection, Yes full ROM and Yes no lymphadenopathy Chest Chest palpation & inspection: normal inspection of the chest Resp Effort & Inspection: normal respiratory effort Auscultation: clear to auscultation bilaterally, no crackles, no rales, no rhonchi, no wheezes and breath sounds present Cardio Rate: regular rate Rhythm: regular rhythm Peripheral pulses: radial pulses present and dorsalis pedis present GI Inspection: Yes normal to inspection and No Abdominal wall edema Palpation (GI): Soft to palpation, not firm and nontender Auscultation: normal bowel sounds Rectal Exam - Male: Yes deferred General: Yes no CVA tenderness Back/Spine/Pelvis Back: no CVA tenderness Skin General skin exam: no rashes or lesions noted Neuro General: patient oriented x3 Cranial nerves: Yes Equal, round and reactive pupils present, Yes Midline tongue present, Yes Ability to bilaterally elevate shoulders present and No Nystagmus present Gait exam (Neuro): Normal gait present Extrem General: Yes normal to inspection, Yes full ROM, No no pedal edema and No edema Psych Speech and movement: Normal speech and movement present Affect: normal affect Insight: Good insight present (Psych) Judgement: Good judgement present (Psych) Assessment & Plan Assessment & Plan (1) Impaired glucose tolerance: Code(s): R73.02 - Impaired glucose tolerance (oral) Plan: Last blood work within normal limits not currently on medical management. Decrease the amount of carbohydrates such as pasta, bread, rice, and potatoes and limit the amount of sweets. Although fruits are generally healthy they should be eaten in moderation as they are still high in sugar. (2) Hypercholesterolemia: Code(s): E78.00 - Pure hypercholesterolemia, unspecified Plan: Last blood work was within normal limits on atorvastatin 40 mg. Avoid foods that are high in cholesterol such as red meat, fried foods, eggs and baked goods. Triglyceride goal of less than 150 and LDL goal of less than 130. (3) LFT elevation: Comment: Ultrasound done negative Code(s): R79.89 - Other specified abnormal findings of blood chemistry Plan: Continue to monitor with blood work. (4) Overweight (BMI 25.0-29.9): Code(s): E66.3 - Overweight Plan: Encouraged healthy diet and regular exercise. (5) Medicare annual wellness visit, subsequent: Code(s): Z00.00 - Encounter for general adult medical examination without abnormal findings Plan: Patient is up-to-date on all recommended routine screenings vaccinations for his age. Blood work is up-to-date and within normal limits. Follow up in 1 year or sooner if new problems arise. Plan This note was constructed using voice recognition software. While every effort has been made to ensure accuracy and sprinkler fitter, still areas may have been included sometimes these areas may affect the content or meeting of the given symptoms. Total time spent caring for the patient today was 30 minutes. This includes time spent before the visit reviewing the chart, time spent during the visit, and time spent after the visit and documentation. Medications: Refilled atorvastatin 40 mg PO DAILY 90 days 90 tabs 3RF E78.00 - Pure hypercholesterolemia, unspecified Coding Level of Care Code Medicare Subsequent (G0439) Diagnoses Impaired glucose tolerance R73.02 Hypercholesterolemia E78.00 LFT elevation R79.89 Overweight (BMI 25.0-29.9) E66.3 Medicare annual wellness visit, subsequent Z00.00 CPT Codes Advance Care Planning - Advance Care Planning discussion: On file, no changes ([id number]) Advance Care Planning - Time spent: 1-15 minutes, on File ([id number]) Advance Care Planning Advance Care Planning discussion: On file, no changes Date of discussion: 04/05/24 Who was present: patient Forms completed: Health Care Proxy and [facility]OL[facility] Time spent: 1-15 minutes, on File Actual minutes spent: 5
[2024-04-05 09:00] VITALS: BP 130/62; PULSE 88; O2SAT 98; BMI 25.7
== END 2024-04-05 09:41 | disposition home or self-care (01) ==
PROVIDERS: PCP Internal Medicine
DX: R73.02 Impaired glucose tolerance (oral) (principal); E78.00 Pure hypercholesterolemia, unspecified; E66.3 Overweight; Z68.25 Body mass index [BMI] 25.0-25.9, adult; Z00.00 Encounter for general adult medical examination without abnormal findings
CPT/HCPCS: 1123F; 99214

== ENCOUNTER 2024-07-13 08:31 | Outpatient (AMB) | payer MEDICARE, SELFPAY ==
--- NOTE | 2024-07-13 08:38 | MHC.OFFWIV ---
Intake Vital Signs 07/13/24 08:41 Height 5 ft 6 in Weight 164 lb BMI 26.5 BP 138/90 H Blood Pressure Location Lt brachial Position Sitting Pulse 77 Pulse Source Pulse Oximeter Pulse Oximetry (%) 95 Oxygen Delivery Method Room Air Intake Visit Reasons: EP-cut in lt side forehead Intake Note: Patient here because he got a a saul horse this morning and went to get up and got tangled in the sheets and hit his head on the end table. Patient Tobacco Use Status: Never used Tobacco Allergies No Known Allergies Allergy (Verified 07/13/24 08:41) Do you need a note to return to daycare/school/sports/work: No HPI HPI Comments History of Present Illness Details The patient is an 84-year-old male presenting with a head laceration and loss of consciousness after a fall. Approximately one and a half hours prior to the visit, the patient attempted to get out of bed when he experienced a severe Saul horse in his lip, became entangled in his bed covers, and subsequently fell. During the fall, he struck the left side of his forehead against a bookcase, resulting in bleeding from his forehead. His observed him flat on the floor with blood present and estimates his possible loss of consciousness lasted approximately 10 seconds. There was no administration of anticoagulants other than aspirin. The fall resulted in significant impact on the left side of the forehead, which is the probable source of active bleeding. Upon attempting initial washing, his discovered the forehead laceration as the source of bleeding. The patient describes the involvement of additional minor injuries - scrapes to the eyebrow and nose - but these are not severe. The patient has a history of syncope in response to blood due to a fear of injury, leading to suspicions his blackout was fear-induced rather than trauma-induced. No imaging was done prior to or following the event. Subsequent to the event, the patient reports significant neck muscle discomfort, attributing it to muscle strain from the fall, with no prior injury history in this region. There are no reported changes in neurology, such as dizziness or lightheadedness, beyond this episode. The patient describes no previous similar episodes or treatment history prior to this incident. Physical Exam General: Cooperative, healthy appearing, comfortable, no acute distress and well developed Orientation: Patient oriented x3 Limitations: No limitations Head: Laceration on the left side of the forehead, requires sutures Ears: Hearing grossly normal bilaterally Nose: Normal external nose present, minor scrape noted Face and sinus: Normal facial exam, minor scrape on the other eyebrow and bridge of nose Eyes: Appearance normal, both eyes and all related structures Neck: Normal visual inspection, full ROM, patient reports neck pain possibly due to muscle strain Respiratory: Normal respiratory effort and able to speak in complete sentences. Skin: No rashes or lesions noted, 2cm deep non-linear laceration superior to left eyebrow, no bone visible Neuro: Patient oriented x3, no acute neurological deficits observed Extremities: Normal to inspection [facility] Medical History (Updated 07/13/24 @ 09:53 by Lexy Silvestre PA-C) URI with cough and congestion Anxiety Adult general medical exam Sore throat Tick bite Surgical History History of laparoscopic appendectomy (01/19/24) Hx of colonoscopy Hx of bilateral cataract extraction Hx of tonsillectomy Family History Father No problems noted. Mother No problems noted. Brother No problems noted. Sister No problems noted. Sister No problems noted. Sister No problems noted. Son No problems noted. Social History Household Members: Spouse Housing: House Alcohol intake: current Alcohol intake frequency: holidays/special occasions only Patient Tobacco Use Status: Never used Tobacco e-Cigarette/Vaping Use: Never Used Second Hand Smoke Exposure: No service: No Current occupational status: retired Current occupational exposures/hazards: No Cognitive needs: No Hearing needs: No Vision needs: Yes (glasses) Review of Systems Const All systems reviewed & are unremarkable except as noted in HPI and below Physical Exam Vital Signs: Last Vital Signs Pulse 77 07/13/24 08:41 BP 138/90 H 07/13/24 08:41 Pulse Ox 95 07/13/24 08:41 Oxygen Delivery Method Room Air 07/13/24 08:41 BMI result Body Mass Index 26.5 Office Procedures Laceration Repair Procedure EMLA: 2% Lidocaine Text: After discussion of risk and benefits, verbal informed consent was obtained. The area was cleaned, prepped, and draped using sterile technique. The wound was debrided of any foreign material or devitalized tissue. Wound edges were approximated and closed using six 5-0 sutures. Standard wound dressing was applied. Wound care instructions were given. The patient tolerated the procedure well. The patient was instructed to return for increased redness or red streaking, pain, swelling, pus, fevers, chills, or any other signs or symptoms of infection or worsening. DAC Patient was instructed to return for suture removal in 5-6 days Assessment & Plan Assessment & Plan (1) Laceration of forehead: Code(s): S01.81XA - Laceration without foreign body of other part of head, initial encounter Qualifiers: Encounter type: initial encounter Plan: - Repaired the forehead laceration with 6 sutures. - Recommend a CT scan of the head due to loss of consciousness if he develops any dizziness, headaches, changes in vision or hearing, or acting differently. - Advised monitoring for any neurological symptoms or changes, including headache not relieved by Tylenol, nausea, vomiting, or altered mental status, with instructions to seek emergency department care if symptoms arise. - Advise likely will end up with concussion symptoms, does not have any currently. Gave concussion care involving brain rest: reducing exposure to stimulation from screens and reading, light and noise. - Provide follow-up care instructions including wound care with Vaseline or Aquaphor starting in two to three days post-suture placement, and removal of sutures in 5 to 6 days modifying based on progress and presentation. Gave pt Band-Aids to use when he goes out in public to cover the wound. - Observe for any signs of progressing neck discomfort and apply 5-0 sutures as needed to ensure resolution of symptoms. - Encourage the patient to maintain a low threshold for seeking additional evaluation if any adverse symptoms develop. Patient was informed and verbally consented to the use of an ambient scribe for clinic note documentation during this visit. Coding Level of Care Code Est Pt Level 5 (84584) Diagnoses Laceration of forehead S01.81XA Encounter type: initial encounter
[2024-07-13 08:41] VITALS: BP 138/90; PULSE 77; O2SAT 95; BMI 26.5
== END 2024-07-13 09:54 | disposition home or self-care (01) ==
PROVIDERS: PCP Internal Medicine; Visit Provider Physician Assistant
DX: S01.81XA Laceration without foreign body of other part of head, initial encounter (principal)

== ENCOUNTER → 2024-07-13 08:31 | Outpatient (BNVA) | payer MEDICARE, SELFPAY | PROVIDERS: PCP Internal Medicine; Visit Provider Physician Assistant | DX: S01.81XA Laceration without foreign body of other part of head, initial encounter (principal) | CPT/HCPCS: 12011; 99212 ==

== ENCOUNTER 2024-07-21 09:30 | Outpatient (AMB) | payer MEDICARE, SELFPAY ==
[2024-07-21 10:41] VITALS: BP 140/90; PULSE 81; O2SAT 99
--- NOTE | 2024-07-21 10:41 | AM.OFFWIN_ITS ---
Intake Vital Signs 07/21/24 10:41 Weight 164 lb BP 140/90 H Blood Pressure Location Lt brachial Position Sitting Pulse 81 Pulse Source Pulse Oximeter Pulse Oximetry (%) 99 Oxygen Delivery Method Room Air Intake Visit Reasons: EP removal of stitches Intake Note: Patient here to have 6 stitches removed above left eyebrow Patient Tobacco Use Status: Never used Tobacco Allergies No Known Allergies Allergy (Verified 07/21/24 10:41) Do you need a note to return to daycare/school/sports/work: No HPI EP removal of stitches HPI Details This note is constructed using voice recognition software. While every effort has been made to ensure accuracy, advertising representative errors may have been included. The patient is a 84 year old male who presents to the clinic today with suture removal. He was last seen in clinic on 07/13/2024 after a fall with laceration above the left eye though. He has 6 interrupted sutures placed, and has done well with them. He denies discharge, pain, redness, warmth. [facility] Medical History (Updated 07/21/24 @ 10:55 by Kadi Davis NP) URI with cough and congestion Anxiety Adult general medical exam Sore throat Tick bite Surgical History History of laparoscopic appendectomy (01/19/24) Hx of colonoscopy Hx of bilateral cataract extraction Hx of tonsillectomy Family History Father No problems noted. Mother No problems noted. Brother No problems noted. Sister No problems noted. Sister No problems noted. Sister No problems noted. Son No problems noted. Social History Household Members: Spouse Housing: House Alcohol intake: current Alcohol intake frequency: holidays/special occasions only Patient Tobacco Use Status: Never used Tobacco e-Cigarette/Vaping Use: Never Used Second Hand Smoke Exposure: No service: No Current occupational status: retired Current occupational exposures/hazards: No Cognitive needs: No Hearing needs: No Vision needs: Yes (glasses) Review of Systems Const All systems reviewed & are unremarkable except as noted in HPI and below Physical Exam Vital Signs: Last Vital Signs Pulse 81 07/21/24 10:41 BP 140/90 H 07/21/24 10:41 Pulse Ox 99 07/21/24 10:41 Oxygen Delivery Method Room Air 07/21/24 10:41 Const General: cooperative, healthy appearing, comfortable, no acute distress and well developed Orientation/consciousness: patient oriented x3 Limitations: no limitations HEENT Head: Yes normal to inspection Ears: hearing grossly normal bilaterally General nose exam: Normal external nose present Face and sinus: Yes normal facial exam Eyes General: appearance normal, both eyes and all related structures Neck Neck: Yes normal visual inspection and Yes full ROM Resp Effort & Inspection: normal respiratory effort and able to speak in complete sentences Skin Other: Six interrupted sutures of left eyebrow removed without difficulty. Patient tolerated procedure. General skin exam: no rashes or lesions noted Neuro General: patient oriented x3 Assessment & Plan Assessment & Plan (1) Laceration of forehead: Code(s): S01.81XA - Laceration without foreign body of other part of head, initial encounter Qualifiers: Encounter type: subsequent encounter Qualified Code(s): S01.81XD - Laceration without foreign body of other part of head, subsequent encounter Plan: Sutures removed from laceration. Patient tolerated procedure well. Advised patient to keep the area clean. Advised patient to monitor for signs of infection including erythema, discharge, which we would not anticipate. Plan See above for full details and plan. Coding Level of Care Code Est Pt Level 3 (42110) Diagnoses Laceration of forehead, subsequent encounter S01.81XD Encounter type: subsequent encounter
== END 2024-07-21 12:00 | disposition home or self-care (01) ==
PROVIDERS: PCP Internal Medicine; Visit Provider Registered Nurse
DX: S01.81XD Laceration without foreign body of other part of head, subsequent encounter (principal)

== ENCOUNTER → 2024-07-21 09:30 | Outpatient (BNVA) | payer MEDICARE, SELFPAY | PROVIDERS: PCP Internal Medicine; Visit Provider Registered Nurse | DX: Z48.02 Encounter for removal of sutures (principal); S01.81XD Laceration without foreign body of other part of head, subsequent encounter; X58.XXXD Exposure to other specified factors, subsequent encounter | CPT/HCPCS: 99212 ==

== ENCOUNTER 2024-08-03 07:41 | Outpatient (REF) | payer MEDICARE, SELFPAY ==
[2024-08-03 09:54] LABS: MANUAL DIFF FLAG NO
[2024-08-03 10:03] LABS: Appearance Urine Clear; Color Urine Yellow; Glucose Urine UA Negative (Negative); Leukocyte Esterase Urine Negative (Negative); Nitrite Urine Negative (Negative); PH 5.5 (5.0-9.0); Specific Gravity - Urine 1.025 (1.005-1.025); Urine Blood Negative (Negative); Urine Ketones Negative (Negative); Urine Protein Negative (Neg-Trace)
[2024-08-03 10:04] LABS: Basophils Absolute Auto 0.1 X10*3/uL (0.0-0.2); Basophils Percent Auto 1.1 % (0-2); Eosinophils Absolute Auto 0.2 X10*3/uL (0.0-0.4); Eosinophils Percent Auto 3.1 % (0-4); Hematocrit 44.3 % (42.0-52.0); Hemoglobin 14.7 g/dl (14.0-18.0); Imm Gran Abs Auto 0.05 X10*3/uL (0.00-0.03); Imm Gran Pct Auto 0.8 % (0.0-0.4); Lymphocytes Absolute Auto 1.9 X10*3/uL (1.2-4.9); Lymphocytes Percent Auto 28.9 % (20-40); Mean Corpuscular HGB Conc 33.2 g/dl (31.0-36.0); Mean Corpuscular Hemoglobin 31.1 pg (27.0-33.0); Mean Corpuscular Volume 93.9 fL (80.0-98.0); Mean Platelet Volume 12.1 fL (9.4-12.4); Monocytes Absolute Auto 0.5 X10*3/uL (0.1-1.2); Monocytes Percent Auto 8.4 % (2-11); Neutrophils Absolute Auto 3.7 x10*3/uL (2.0-8.3); Neutrophils Percent Auto 57.7 % (45-73); Platelet Count 235 X10*3/uL (160-400); Red Blood Count 4.72 X10*6/uL (4.60-5.80); Red Cell Distribution Width 12.7 % (11.0-16.0); White Blood Count 6.4 X10*3/uL (4.8-10.8)
[2024-08-03 10:24] LABS: Estimated Average Glucose 123 mg/dL; Hemoglobin A1C 152.5799 umol/L; Hemoglobin A1c % 5.9 % (<6.0); Total Hemoglobin (HGBA1C) 3681.0606 umol/L
[2024-08-03 10:29] LABS: Alanine Aminotransferase 45 U/L (0-40); Alkaline Phosphatase 81 U/L (39-117); Anion Gap 11 (12-20); Aspartate Amino Transferase 26 U/L (5-37); Bilirubin Total 0.6 mg/dL (0.0-1.0); Blood Urea Nitrogen 18 mg/dL (9-16); Calcium 9.2 mg/dL (8.4-10.2); Carbon Dioxide 27 mmol/L (22-29); Chloride 109 mmol/L (96-108); Cholesterol 179 mg/dL (<200); Estimated Glomerular Filt Rate > 60; Glucose Random 91 mg/dL (60-115); HDL Cholesterol 62 mg/dL (>40); LDL Cholesterol Calculated 103 mg/dL (<100); Potassium 4.3 mmol/L (3.3-5.1); Sodium 143 mmol/L (135-145); Triglycerides 72 mg/dL (<150)
[2024-08-03 10:49] LABS: Free T4 (Free Thyroxine) 1.05 ng/dL (0.71-1.85); Thyroid Stimulating Hormone 1.49 uIU/mL (0.32-4.0)
[2024-08-03 10:53] LABS: Folate 18.4 ng/mL (> or = 4.0); Vitamin B12 1016 pg/mL (200-900)
== END 2024-08-03 07:42 | disposition home or self-care (01) ==
LOC: HO.HMGCLDS 07:41
PROVIDERS: PCP Internal Medicine; Visit Provider Internal Medicine
DX: R73.02 Impaired glucose tolerance (oral) (principal); E78.00 Pure hypercholesterolemia, unspecified; R30.0 Dysuria
CPT/HCPCS: 36415; 80053; 80061; 81003; 82607; 82746; 83036; 84439; 84443; 85025

== ENCOUNTER 2024-08-05 09:07 | Outpatient (AMB) | payer MEDICARE, SELFPAY ==
[2024-08-05 09:11] VITALS: BP 134/72; PULSE 66; O2SAT 97; BMI 26.5
--- NOTE | 2024-08-05 09:11 | MHC.PC.OV ---
Vital Signs 08/05/24 09:11 Height 5 ft 6 in Weight 164 lb BMI 26.5 BP 134/72 Blood Pressure Location Lt brachial Position Sitting Pulse 66 Pulse Source Pulse Oximeter Pulse Oximetry (%) 97 Oxygen Delivery Method Room Air Intake Visit Reasons: 4mth f/u Incident Response Consultant Required: No Accompanied by: Self / Same As Patient Allergies No Known Allergies Allergy (Verified 08/05/24 09:12) Tobacco use date assessed: 08/05/24 Fall risk assessment: 1 Fall in past year Last assessed Fall Risk: 08/05/24 Dental Screening Dental Screen Date: 08/05/24 Did you have a dental visit in the last 12 months?: Yes Did you have a dental problem in the last 6 months where you did not have access to dental care?: No Was dental information given to patient?: Patient has dentist HPI 4mt f/u HPI Details The patient is an 84-year-old male presenting with a recent fall. The incident occurred when the patient experienced a charley horse upon getting out of bed, causing him to fall and hit a bookcase. He did not lose consciousness but was found on the floor by his . This was the first occurrence of such an event for the patient, who does not generally experience unsteadiness while walking. The patient expresses no prior history of frequent falls. Additionally, the patient reports occasional leg cramps, usually without any associated diarrhea or nausea, and has no consistent leg pain or swelling. Laboratory results confirm normal blood counts, kidney function, electrolyte levels, and glucose, with stable cholesterol levels and previously noted slightly elevated liver enzymes. The patient is up-to-date on flu and pneumonia vaccinations and discussed the need for a tetanus shot due to the fall. Discussion also occurred regarding the shingles vaccine and anticipated systemic reactions. The patient highlighted procedural communication issues with medical army senior officer regarding necessary pre-visit labs. [facility] Medical History (Updated 07/21/24 @ 10:55 by Kadi Davis NP) URI with cough and congestion Anxiety Adult general medical exam Sore throat Tick bite Surgical History History of laparoscopic appendectomy (01/19/24) Hx of colonoscopy Hx of bilateral cataract extraction Hx of tonsillectomy Family History Father No problems noted. Mother No problems noted. Brother No problems noted. Sister No problems noted. Sister No problems noted. Sister No problems noted. Son No problems noted. Social History Household Members: Spouse Housing: House Alcohol intake: current Alcohol intake frequency: holidays/special occasions only Patient Tobacco Use Status: Never used Tobacco e-Cigarette/Vaping Use: Never Used Second Hand Smoke Exposure: No service: No Current occupational status: retired Current occupational exposures/hazards: No Cognitive needs: No Hearing needs: No Vision needs: Yes (glasses) Questionnaire PHQ-9 Over the last 2 weeks, how often have you been bothered by any of the following problems? 1. Little interest or pleasure in doing things: not at all 2. Feeling down, depressed, or hopeless: not at all 3. Trouble falling or staying asleep, or sleeping too much: not at all 4. Feeling tired or having little energy: not at all 5. Poor appetite or overeating: not at all 6. Feeling bad about yourself - or that you are a failure or have let yourself or your family down: not at all 7. Trouble concentrating on things, such as reading the newspaper or watching television: not at all 8. Moving or speaking so slowly that other people could have noticed. Or the opposite - being so fidgety or restless that you have been moving around a lot more than usual: not at all 9. Thoughts that you would be better off or of hurting yourself in some way: not at all Total score: 0 Depression Screening Interpretation: Negative Depression Screening Done: Yes Source: Developed by Drs. Tod Og, Vivienne Verma, Estrada Granado and colleagues, with an educational eugenie from [employer]. Thrive Questionnaire Date Thrive assessed: 08/05/24 I am a: Patient What is your living situation today?: I have a steady place to live Within the past 12 months, did the food you bought not last and you didn't have the money to get more?: Never true Within the past 12 months, did you worry whether your food would run out before you got money to buy more?: Never true Do you have trouble paying for medicines?: No Do you have trouble getting transportation to medical appointments?: No Do you have trouble paying your heating and electricity bill?: No Do you have trouble taking care of your child, family member or friend?: No Do you have trouble with day-to-day activities such as bathing, preparing meals, shopping, managing finances, etc.?: No Are you currently unemployed and looking for a job?: No Are you interested in more education?: No Please select the resources that you would like help with: None Currently or been in a relationship where the following occur: No concerns reported THRIVE Score: 0 AUDIT C Alcohol Use Questionnaire (AUDIT-C) 1. How often do you have a drink containing alcohol?: Never Total Score: 0 CHELSEA-7 AMB Questionnaire CHELSEA-7 Date CHELSEA - 7 assessed: 08/05/24 Feeling nervous, anxious, or on edge: 0 = Not at all Not being able to stop or control worryin = Not at all Worrying too much about different things: 0 = Not at all Trouble relaxin = Not at all Being so restless that it is hard to sit still: 0 = Not at all Becoming easily annoyed or irritable: 0 = Not at all Feeling afraid as if something awful might happen: 0 = Not at all Total CHELSEA-7 score (0-4 normal; 5-9 mild; 10-14 moderate; 15-21 severe): 0 Source: Developed by Drs. Tod Og, Vivienne Verma, Estrada Granado and colleagues, with an educational eugenie from [employer]. Physical exam (Primary Care) Vital Signs: Oxygen Delivery Method Room Air 08/05/24 09:11 BMI result Body Mass Index 26.5 Tobacco/Smoking Status: Tobacco use Status Tobacco use date assessed 08/05/24 08/05/24 09:15 Patient Tobacco Use Status Never used Tobacco 08/05/24 09:15 e-Cigarette/Vaping Use Never Used 08/05/24 09:15 PHQ-9: PHQ-9 Score PHQ-9: Total score 0 08/05/24 09:15 Depression Screening Interpretation: Negative Thrive Assessment: Date of Thrive Assessment Date Thrive assessed 08/05/24 08/05/24 09:15 Currently or been in a relationship where the following occur: No concerns reported Const General: alert; No acute distress [facility] Face images: 1. 4 cm incisional scar clean and no redness L eyebrow Eyes Conjunctivae: conjunctivae normal Resp Auscultation: clear to auscultation bilaterally Cardio Rate: regular rate Rhythm: regular rhythm GI Inspection: Yes normal to inspection Extrem General: Yes normal to inspection and No edema Coding Level of Care Code Est Pt Level 4 (73170) Diagnoses Laceration of forehead, subsequent encounter S01.81XD Encounter type: subsequent encounter Impaired glucose tolerance R73.02 Hypercholesterolemia E78.00 Assessment & Plan Assessment & Plan (1) Laceration of forehead: Code(s): S01.81XA - Laceration without foreign body of other part of head, initial encounter Category: Medical Qualifiers: Encounter type: subsequent encounter Qualified Code(s): S01.81XD - Laceration without foreign body of other part of head, subsequent encounter (2) Impaired glucose tolerance: Code(s): R73.02 - Impaired glucose tolerance (oral) Category: Medical Plan: normal (3) Hypercholesterolemia: Code(s): E78.00 - Pure hypercholesterolemia, unspecified Category: Medical Plan - Administer tetanus vaccination due to potential laceration from the recent fall. - Recommend dietary and hydration adjustments to prevent recurrence of leg cramps; acknowledge adequate consumption of electrolytes such as magnesium, potassium, and calcium. - Monitor liver function tests periodically; no immediate intervention required due to stable status. - Instruct patient on safety measures at home, to prevent future falls. - Facilitate communication about needed pre-visit laboratory work with medical office management to improve administrative procedures. - Encourage consideration of the shingles vaccination, advise about the two-part vaccine series, and discuss potential for feeling unwell after the first dose. - Provide advice on maintaining hydration, healthy eating, and regular physical activity to support overall health and well-being. Patient was informed and verbally consented to the use of an ambient scribe for clinic note documentation during this visit. Orders: Orders Complete Blood Count Auto Diff 6 Months R73.02 - Impaired glucose tolerance (oral) Free T4 (Free Thyroxine) 6 Months R73.02 - Impaired glucose tolerance (oral) Hemoglobin A1c 6 Months R73.02 - Impaired glucose tolerance (oral) Comprehensive Met. Panel 6 Months R73.02 - Impaired glucose tolerance (oral) Thyroid Stimulating Hormone 6 Months R73.02 - Impaired glucose tolerance (oral) Lipid Panel 6 Months E78.00 - Pure hypercholesterolemia, unspecified, R73.02 - Impaired glucose tolerance (oral) Vitamin B12 and Folate 6 Months R73.02 - Impaired glucose tolerance (oral)
== END 2024-08-05 10:01 | disposition home or self-care (01) ==
PROVIDERS: PCP Internal Medicine; Visit Provider Internal Medicine
DX: S01.81XD Laceration without foreign body of other part of head, subsequent encounter (principal); R73.02 Impaired glucose tolerance (oral); E78.00 Pure hypercholesterolemia, unspecified

== ENCOUNTER → 2024-08-05 09:07 | Outpatient (BNVA) | payer MEDICARE, SELFPAY | PROVIDERS: PCP Internal Medicine; Visit Provider Internal Medicine | DX: Z23 Encounter for immunization (principal); S01.81XD Laceration without foreign body of other part of head, subsequent encounter; R73.02 Impaired glucose tolerance (oral); E78.00 Pure hypercholesterolemia, unspecified | CPT/HCPCS: 90471; 90715; 99212 ==

== ENCOUNTER 2024-12-01 13:49 | Outpatient (AMB) | payer MEDICARE, SELFPAY ==
--- NOTE | 2024-12-01 13:49 | A.OFFPC_ITS ---
Intake Visit Reasons: Pos. COVID Allergies No Known Allergies Allergy (Verified 12/01/24 13:50) Medication List - Last Reconciled 12/01/24 by Arley Hills MD [id number] 250-250-65 mg (Excedrin Migraine) 1 tab PO DAILY PRN atorvastatin 40 mg PO DAILY 90 days chlorpheniramine maleate 4 mg PO Q4H PRN cholecalciferol (vitamin D3) 50 mcg PO DAILY docusate sodium (Colace) 100 mg PO BID multivitamin 1 tab PO DAILY nirmatrelvir-ritonavir 300 mg (150 mg x 2)-100 mg (Paxlovid) take TWO 150 mg tablets of nirmatrelvir with ONE 100 mg tablet of ritonavir twice daily for 5 days PO Tobacco use date assessed: 08/05/24 Fall risk assessment: No Falls in past year Last assessed Fall Risk: 12/01/24 Dental Screening Dental Screen Date: 08/05/24 HPI Pos. COVID HPI Details positive covid yesterday, coughing, chills myalgia, 4days ago PFSH Medical History (Updated 12/01/24 @ 14:20 by Arley Hills MD) URI with cough and congestion Anxiety Adult general medical exam Sore throat Tick bite Surgical History History of laparoscopic appendectomy (01/19/24) Hx of colonoscopy Hx of bilateral cataract extraction Hx of tonsillectomy Family History Father No problems noted. Mother No problems noted. Brother No problems noted. Sister No problems noted. Sister No problems noted. Sister No problems noted. Son No problems noted. Social History Household Members: Spouse Housing: House Alcohol intake: current Alcohol intake frequency: holidays/special occasions only Patient Tobacco Use Status: Never used Tobacco Tobacco use type: Cigarette e-Cigarette/Vaping Use: Never Used Second Hand Smoke Exposure: No service: No Current occupational status: retired Current occupational exposures/hazards: No Cognitive needs: No Hearing needs: No Vision needs: Yes (glasses) Questionnaire Thrive Questionnaire Date Thrive assessed: 08/05/24 CHELSEA-7 AMB Questionnaire CHELSEA-7 Date CHELSEA - 7 assessed: 08/05/24 Source: Developed by DrsAndrea Og, Vivienne Verma, Estrada Granado and colleagues, with an educational eugenie from [employer]. Physical exam (Primary Care) Tobacco/Smoking Status: Tobacco use Status Tobacco use date assessed 08/05/24 12/01/24 13:51 Patient Tobacco Use Status Never used Tobacco 12/01/24 13:51 Tobacco use type Cigarette 12/01/24 13:51 e-Cigarette/Vaping Use Never Used 12/01/24 13:51 Thrive Assessment: Date of Thrive Assessment Date Thrive assessed 08/05/24 12/01/24 13:51 Telehealth Telehealth Telehealth Platform: Telephone Location of provider rendering services: practice address Location of patient: address on file Patient Identification confirmed using: Name, : Yes Telehealth method: voice only (landline) Patient verbally consented to treatment: Yes Patient verbally consented to billing insurance company: Yes Patient informed of any privacy concerns related to visit: Yes Minutes spent on Phone/Video with Pt.: 15 Coding Level of Care Code Tele Est Pt Level 3 (67033) Diagnoses COVID-19 virus infection U07.1 Assessment & Plan Assessment & Plan (1) COVID-19 virus infection: Comment: 07/08/2022, 12/01/2024 Code(s): U07.1 - COVID-19 Category: Medical Plan: For the sore throat can take Cepacol lozenges, discussed about Delsym to help with dry cough so she can rest and advised to increase oral fluids. Patient also can take Tylenol for chills and fever. Antiviral prescription sent in Plan History of Present Illness The patient is an 84-year-old male presenting with coughing, fatigue, and a recent positive COVID-19 test result. The patient, with a history of hypercholesterolemia and impaired glucose tolerance, reported the onset of symptoms after returning from a trip to [place]. Symptoms began on Thursday with noticeable tiredness and coughing. Despite efforts, he has been reluctant to maintain adequate food and fluid intake, which is a concern given his symptoms of fatigue and reduced appetite. Prior treatment with Paxlovid was noted, and he had been concurrently taking atorvastatin, which is to be held during Paxlovid therapy. Review of Systems - General: Reports fatigue and feeling run down. - Respiratory: Reports coughing. - Gastrointestinal: Denies notable change in bowel habits but reports reluctance to maintain adequate hydration and nutrition. - Neurological: Denies significant confusion or cognitive changes but reports tiredness. - Endocrine: Denies recent significant changes in glucose control. Plan The patient is to be treated with Paxlovid for the COVID-19 infection, and atorvastatin therapy will be temporarily discontinued during this treatment. Emphasis was placed on maintaining hydration and nutrition. The patient's hypercholesterolemia and impaired glucose tolerance will continue to be monitored, and treatment adjustments will be considered post-Paxlovid therapy. The importance of monitoring was stressed, and prompt medical evaluation should be sought if symptoms worsen. Patient was informed and verbally consented to the use of an ambient scribe for clinic note documentation during this visit. Discussion Notes During the telehealth visit, I explained the positive COVID-19 result and the need for initiating Paxlovid treatment. I advised the patient to stop atorvastatin during the Paxlovid course due to possible interactions. Emphasis was placed on fluid intake and nutrition, with the benefits of these mentioned as supportive during recovery. We discussed potential side effects of Paxlovid, understanding of treatment compliance, and monitoring symptoms for any adverse developments. I advised maintaining communication and updating me on any changes in condition, especially in the presence of worsening symptoms. Patient Instructions - Start Paxlovid treatment as prescribed. - Stop atorvastatin during the Paxlovid course (5 days). - Drink plenty of fluids and consume light meals to maintain hydration and nutrition. - Monitor symptoms closely and seek immediate care if symptoms worsen. - Maintain regular testing for COVID-19 and report any changes. - Reach out if there are any doubts or concerns regarding medication or health status. Medications: New nirmatrelvir-ritonavir 300 mg (150 mg x 2)-100 mg (Paxlovid) take TWO 150 mg tablets of nirmatrelvir with ONE 100 mg tablet of ritonavir twice daily for 5 days PO 30 ea 0RF U07.1 - COVID-19
--- OUTSIDE RECORDS SUMMARY | 2024-12-01 14:45 | XMS_ITS | Clinical Summary ---
Author Organization [employer] Address [address] [place] [address] Care Team Providers Care Fire Sprinkler Service Technician Name Role Phone Unavailable Primary Care Provider Unavailabl e Social History Tobacco Use Types Packs/Day Years Used Date Smoking Tobacco: Never Assessed Sex and Gender Information Value Date Recorded Sex Assigned at Male 05/26/2022 10:23 AM EDT Legal Sex Male 10:23 AM EDT Gender Identity Choose not to disclose 10:23 AM EDT Sexual Orientation Choose not to disclose 2021 10:23 AM EDT Plan of Treatment Health Maintenance Due Date Last Done Comments Depression Screening 1940 Lipid Panel 1940 Alcohol/Substance Use Screening 1952 Tobacco Screening 1952 DTaP/Tdap/Td Vaccines (1 - Tdap) 1959 Pneumococcal Vaccine: 50+ Ye ars (1 of 1 - PCV) 1990 Zoster Vaccines (1 of 2) 1990 RSV Patients and Pa tients Aged 60 years or older (1 - 1-dose 75+ series) 2015 COVID-19 Vaccine (2023-2 5 season) 2024 Influenza Vaccine (#1) 2024 HIB Vaccines Aged Out No longer eligi ble based on patient's age to complete this topic HPV Vaccines Aged Out No longer eligi ble based on patient's age to complete this topic Hepatitis A Vaccines Aged Out No long er eligible based on patient's age to complete this topic Hepatitis B Vaccines Aged Out No long er eligible based on patient's age to complete this topic IPV Vaccines Aged Out No longer eligi ble based on patient's age to complete this topic Meningococcal Vaccine Aged Out No deena rudy eligible based on patient's age to complete this topic RSV under 20 months Aged Out No longe r eligible based on patient's age to complete this topic Rotavirus Vaccines Aged Out No longer eligible based on patient's age to complete this topic
--- OUTSIDE RECORDS SUMMARY | 2024-12-01 14:45 | XMS_ITS | Encounter Summary ---
Author Organization [employer] Address [address] [place] [address] Care Team Providers Care Corporate Compliance Director Name Role Phone Unavailable Primary Care Provider Unavailabl e Encounter Details Date Type Department Care Team (Latest Contact Info) Description 02/08/2019 Abstract C CONVERSIONS Dental, Provider, DDS Social History Tobacco Use Types Packs/Day Years Used Date Smoking Tobacco: Never Assessed Sex and Gender Information Value Date Recorded Sex Assigned at Male 05/26/2022 10:23 AM EDT Legal Sex Male 10:23 AM EDT Gender Identity Choose not to disclose 10:23 AM EDT Sexual Orientation Choose not to disclose 2021 10:23 AM EDT documented as of this encounter Plan of Treatment Not on file documented as of this encounter Visit Diagnoses Not on filedocumented in this encounter
== END 2024-12-01 14:36 | disposition home or self-care (01) ==
LOC: HO.HMCH 13:49
PROVIDERS: PCP Internal Medicine; Visit Provider Internal Medicine
DX: U07.1 COVID-19 (principal)

== ENCOUNTER → 2024-12-01 13:49 | Outpatient (BNVA) | payer MEDICARE, SELFPAY | PROVIDERS: PCP Internal Medicine; Visit Provider Internal Medicine | DX: Z13.89 Encounter for screening for other disorder (principal) ==

== ENCOUNTER 2025-03-09 12:12 | Outpatient (AMB) | payer MEDICARE, SELFPAY ==
--- NOTE | 2025-03-09 12:37 | A.OFFPC_ITS ---
Vital Signs 03/09/25 12:38 Height 5 ft 6 in Weight 157 lb BMI 25.3 BP 130/70 Blood Pressure Location Lt brachial Position Sitting Pulse 75 Pulse Source Pulse Oximeter Temp 97.3 F Temp Source Temporal Artery Scan Pulse Oximetry (%) 97 Oxygen Delivery Method Room Air Intake Visit Reasons: Back pain right side/Referral Intake Note: Patient is here to follow up on Back pain right side radiating down the leg. Requesting for referral to Ortho or PT. Shoe Repairer Apprentice Required: No Legal Practice Manager: Not Required per policy Accompanied by: Self / Same As Patient Allergies No Known Allergies Allergy (Verified 03/09/25 12:38) Medication List - Last Reconciled 03/09/25 by Arley Hills MD [id number] 250-250-65 mg (Excedrin Migraine) 1 tab PO DAILY PRN atorvastatin 40 mg PO DAILY 90 days chlorpheniramine maleate 4 mg PO Q4H PRN cholecalciferol (vitamin D3) 50 mcg PO DAILY docusate sodium (Colace) 100 mg PO BID multivitamin 1 tab PO DAILY Tobacco use date assessed: 03/09/25 Fall risk assessment: No Falls in past year Last assessed Fall Risk: 03/09/25 Dental Screening Dental Screen Date: 08/05/24 HPI Back pain right side/Referral HPI Details deny fall or trauma [facility] Medical History (Updated 03/09/25 @ 12:54 by Arley Hills MD) URI with cough and congestion Anxiety Adult general medical exam Sore throat Tick bite Surgical History History of laparoscopic appendectomy (01/19/24) Hx of colonoscopy Hx of bilateral cataract extraction Hx of tonsillectomy Family History Father No problems noted. Mother No problems noted. Brother No problems noted. Sister No problems noted. Sister No problems noted. Sister No problems noted. Son No problems noted. Social History Household Members: Spouse Housing: House Alcohol intake: current Alcohol intake frequency: holidays/special occasions only Patient Tobacco Use Status: Never used Tobacco Tobacco use type: Cigarette e-Cigarette/Vaping Use: Never Used Second Hand Smoke Exposure: No service: No Current occupational status: retired Current occupational exposures/hazards: No Cognitive needs: No Hearing needs: No Vision needs: Yes (glasses) Questionnaire Thrive Questionnaire Date Thrive assessed: 08/05/24 CHELSEA-7 AMB Questionnaire CHELSEA-7 Date CHELSEA - 7 assessed: 08/05/24 Source: Developed by Drs. Tod Og, Vivienne Verma, Estrada Granado and colleagues, with an educational eugenie from [employer]. Physical exam (Primary Care) Vital Signs: Last Vital Signs Temp 97.3 F 03/09/25 12:38 Pulse 75 03/09/25 12:38 BP 130/70 03/09/25 12:38 Pulse Ox 97 03/09/25 12:38 Oxygen Delivery Method Room Air 03/09/25 12:38 BMI result Body Mass Index 25.3 Tobacco/Smoking Status: Tobacco use Status Tobacco use date assessed 03/09/25 03/09/25 12:44 Patient Tobacco Use Status Never used Tobacco 03/09/25 12:44 Tobacco use type Cigarette 03/09/25 12:44 e-Cigarette/Vaping Use Never Used 03/09/25 12:44 Thrive Assessment: Date of Thrive Assessment Date Thrive assessed 08/05/24 03/09/25 12:44 Const General: alert; No acute distress Eyes Conjunctivae: conjunctivae normal Resp Auscultation: clear to auscultation bilaterally Cardio Rate: regular rate Rhythm: regular rhythm GI Inspection: Yes normal to inspection Extrem General: Yes normal to inspection and No edema Coding Level of Care Code Est Pt Level 4 (81327) Diagnoses Impaired glucose tolerance R73.02 LFT elevation R79.89 Right sciatic nerve pain M54.31 Assessment & Plan Assessment & Plan (1) Impaired glucose tolerance: Code(s): R73.02 - Impaired glucose tolerance (oral) Category: Medical Plan: Decrease the amount of carbohydrate intake, pasta, bread, rice and potatoes are all sugar and that is aside from all the sweet stuff, remember that fruits are good but they are Sweet also. (2) LFT elevation: Comment: Ultrasound done negative Code(s): R79.89 - Other specified abnormal findings of blood chemistry Category: Medical Plan: Will continue to monitor (3) Right sciatic nerve pain: Code(s): M54.31 - Sciatica, right side Category: Medical Plan History of Present Illness The patient is an 84-year-old male presenting with recurrent sciatica and a recent episode of gastroenteritis. The sciatica has been a recurring issue, with pain originating from the right side down into the leg, particularly around the SI joint and sciatic nerve area. The patient reports difficulty climbing stairs and notes that the pain is exacerbated by poor lumbar support and prolonged sitting, especially on low chairs. Chiropractic interventions have been attempted previously, providing temporary relief, but the current episode has persisted since January 27. The patient experienced gastroenteritis approximately 10 days ago, characterized by diarrhea and vomiting, which also affected his . He reports that his bowel movements have since returned to normal. The patient has a history of hypercholesterolemia, with cholesterol levels currently within normal limits. His last blood work in July showed normal blood count, electrolytes, renal function, and blood sugar, with a hemoglobin A1c of 5.9. Liver enzymes were noted to be elevated, a finding consistent with previous results, although a 2020 ultrasound showed a normal liver. Preventative care measures include a colonoscopy, which is overdue since the last one was performed in 2011. Health Maintenance - Colonoscopy overdue since 2011 - Discussion about shingles vaccination, with patient considering after observi ng 's reaction Social History - Engages in gardening activities, often sitting on an office chair or recliner Review of Systems - Musculoskeletal: Reports pain in the right side down into the leg, difficulty climbing stairs - Gastrointestinal: Reports recent diarrhea and vomiting, now resolved - Neurological: Denies knee and hip pain - Genitourinary: Denies urinary issues Physical Exam - Musculoskeletal: Pain noted in the right side down into the leg, particularly around the SI joint and sciatic nerve area Results - Labs: Normal blood count, electrolytes, renal function, and blood sugar; hemoglobin A1c 5.9; elevated liver enzymes - Imagin ultrasound showed normal liver Plan The plan for managing the patient's sciatica includes initiating physical therapy to address the pain and improve mobility. The patient is advised to avoid prolonged sitting on low chairs and to ensure proper lumbar support to prevent exacerbation of symptoms. For the recent gastroenteritis, no further intervention is required as symptoms have resolved. The patient is encouraged to maintain hydration and monitor for any recurrence of symptoms. Preventative care includes scheduling a colonoscopy, as the last one was performed in 2012. The patient is also advised to consider the shingles vaccination, observing his 's reaction to the vaccine before proceeding. Patient was informed and verbally consented to the use of an ambient scribe for clinic note documentation during this visit. Discussion Notes I discussed with the patient the management of his sciatica, recommending phys ical therapy as a non-invasive approach to alleviate symptoms. We also reviewed the importance of proper lumbar support and avoiding prolonged sitting on low chairs. Regarding his recent gastroenteritis, I reassured him that no further treatment is necessary as symptoms have resolved, but emphasized the importance of staying hydrated. We discussed the need for a colonoscopy, given that the last one was in 2011, and the potential benefits of the shingles vaccine, considering his 's experience with it. Patient Instructions - Start physical therapy for sciatica. - Avoid sitting on low chairs and ensure proper lumbar support. - Stay hydrated and monitor for any recurrence of gastroenteritis symptoms. - Schedule a colonoscopy as the last one was in 2011. - Consider getting the shingles vaccine after observing 's reaction. Orders: Orders PT Evaluation and Treatment Today M54.31 - Sciatica, right side
[2025-03-09 12:38] VITALS: BP 130/70; PULSE 75; TEMP 36.3; O2SAT 97; BMI 25.3
--- OUTSIDE RECORDS SUMMARY | 2025-03-09 13:06 | XMS_ITS | Clinical Summary ---
Author Organization [employer] Address [address] [facility] [facility] [address] [place] [address] Care Team Providers Care Educational Coordinator Name Role Phone Unavailable Primary Care Provider Unavailabl e Allergies No known active allergies Medications atorvastatin (Lipitor) 40 MG tablet 12/18/2024 Active Encounters Date Type Department Care Team Description 02/24/2025 1:00 PM EDT Office Visit [facility] [address] [place] [address] Rigo Alanis Dental calculus (Primary Dx) 02/15/2025 Telephone [facility] [address] [place] [address] Carmen House DDS from Last 3 Months Social History Tobacco Use Types Packs/Day Years Used Date Smoking Tobacco: Never Passive Smoke Exposure: Never Smokeless Tobacco: Never Tobacco Cessation:Counseling Given: Not Answered Sex and Gender Information Value Date Recorded Sex Assigned at Male 05/26/2022 10:23 AM EDT Legal Sex Male 10:23 AM EDT Gender Identity Choose not to disclose 10:23 AM EDT Sexual Orientation Choose not to disclose 2021 10:23 AM EDT Last Filed Vital Signs Vital Sign Reading Time Taken Comments Blood Pressure 136/62 02/24/2025 1:09 PM EDT Pulse 65 02/24/2025 1:09 PM EDT Temperature - - Respiratory Rate - - Oxygen Saturation - - Inhaled Oxygen Concentration - - Weight - - Height - - Body Mass Index - - Plan of Treatment Upcoming Encounters Date Type Department Care Team ([facility] st Contact Info) Description 03/31/2025 1:30 PM EDT Office Visit [facility] [address] [place] [address] Harjinder Shyam [address] [place] [id number] Health Maintenance Due Date Last Done Comments Depression Screening 1940 Lipid Panel 1940 SDOH Screening 1940 Alcohol/Substance Use Screening 1952 Zoster Vaccines (1 of 2) 1990 Dental Oral Exam 08/12/2019 02/08/2019, , 02/05/2018, Additional history exists COVID-19 Vaccine ( season) 2024 04/19/2024, 05/11/2023, 06/21/2022, Additional history exists Influenza Vaccine (#1) 2025 , 05/11/2023, 04/30/2022, Additional history exists Dental Prophylaxis 08/28/2025 02/24/2025, 0 02/08/2019, 08/10/2018, Additional history exists Tobacco Screening 02/24/2026 02/24/2025 Dental X-Ray: Bitewings 02/25/2026 02/25/20, 08/10/2018, 08/11/2017, Additional history exists Dental X-Ray: Full Mouth 02/26/2028 02/24/2025, 06/26 DTaP/Tdap/Td Vaccines (2 - Td or Tdap) 08/05/2034 08/05/2024 Pneumococcal Vaccine: 50+ Years Completed 09/12/2022 RSV Patients and Patients Aged 60 years or older Completed 06/23/2023 HIB Vaccines Aged Out No longer eligi [...] patient's age to complete this topic Meningococcal B Vaccine Aged Out No l onger eligible based on patient's age to complete this topic Meningococcal Vaccine Aged Out No deena rudy eligible based on patient's age to complete this topic RSV under 20 months Aged Out No longe r eligible based on patient's age to complete this topic Rotavirus Vaccines Aged Out No longer eligible based on patient's age to complete this topic Procedures Procedure Name Priority Date/Time Associated Diagnosis Comments CASE PRESENTATION, DETAILED AND EXTENSIVE TREATMENT PLANNING Routine 02/24/2025 1:00 PM EDT ORAL HYGIENE INSTRUCTIONS Routine 2024 1:00 PM EDT PROPHYLAXIS - ADULT Routine 02/24/2025 1 :00 PM EDT INTRAORAL - COMPLETE SERIES OF RADIOGRAPHIC IMAGES Routine 02/24/2025 1:00 PM EDT COMPREHENSIVE PERIODONTAL EVALUATION - NEW OR ESTABLISHED PATIENT Routine 02/24/2025 1:00 PM EDT PERIODIC ORAL EVALUATION - ESTABLISHED PATIENT Routine 02/08/2019 12:00 AM EDT from Last 3 Months or Most Recently Relevant to Health Maintenance Insurance [facility]
== END 2025-03-09 13:02 | disposition home or self-care (01) ==
LOC: HO.HMCH 12:12
PROVIDERS: PCP Internal Medicine; Visit Provider Internal Medicine
DX: R73.02 Impaired glucose tolerance (oral) (principal); R79.89 Other specified abnormal findings of blood chemistry; M54.31 Sciatica, right side

== ENCOUNTER → 2025-03-09 12:12 | Outpatient (BNVA) | payer MEDICARE, SELFPAY | PROVIDERS: PCP Internal Medicine; Visit Provider Internal Medicine | DX: R73.02 Impaired glucose tolerance (oral) (principal); R79.89 Other specified abnormal findings of blood chemistry; M54.31 Sciatica, right side | CPT/HCPCS: 99212 ==

== ENCOUNTER 2025-04-07 09:39 | Outpatient (AMB) | payer MEDICARE, SELFPAY ==
--- OUTSIDE RECORDS SUMMARY | 2025-03-31 13:30 | XMS_ITS | Encounter Summary ---
Author Organization [employer] Address [address] [place] [address] [address] [place] [address] Care Team Providers Care Canal Equipment Maintenance Supervisor Name Role Phone Unavailable Primary Care Provider Unavailabl e Reason for Visit * Reason Comments Filling Encounter Details Date Type Department Care Team ([facility] Contact Info) Description 03/31/2025 1:30 PM EDT Office Visit [facility] [address] [place], [place] [id number] Shyam Grande [address] [place] [address] Social History Tobacco Use Types Packs/Day Years Used Date Smoking Tobacco: Never Passive Smoke Exposure: Never Smokeless Tobacco: Never Sex and Gender Information Value Date Recorded Sex Assigned at Male 05/26/2022 10:23 AM EDT Legal Sex Male 10:23 AM EDT Gender Identity Choose not to disclose 10:23 AM EDT Sexual Orientation Choose not to disclose 2021 10:23 AM EDT documented as of this encounter Last Filed Vital Signs Vital Sign Reading Time Taken Comments Blood Pressure 130/80 03/31/2025 1:40 PM EDT Pulse - - Temperature - - Respiratory Rate - - Oxygen Saturation - - Inhaled Oxygen Concentration - - Weight - - Height - - Body Mass Index - - documented in this encounter Progress Notes * Shyam Grande - 03/31/2025 1:30 PM EDT Dental procedures in this visit [id number] - RESIN-BASED COMPOSITE - 3 SURF, POSTERIOR 3 DOL (Completed) Service provider: Shyam Grande Billing provider: Carmen House DDS Patient ID: Kedar Castellon is a 84 y.o. adult. Time Out: Date: 03/31/2025 Location: [facility] Tooth: #3 Procedure: [facility] Verified the above with patient, assistant finance manager, and provider. Confirmed via patient's chart, intraorally and by radiographs. Acid Strength Inspector: not applicable Composite hindu done on # [address] Shyam Grande Risk, benefits, and alternatives discussed with the patient. CONSENT FORM INITIALED & SIGNED BY THE PATIENT AND COUNTERSIGNED BY Dr. Shyam Grande Medical history: Reviewed in EHR Vitals: Blood pressure 130/80. Allergies: Reviewed in EHR Medications: Reviewed in EHR ASA 1 - LA: 20% topical benzocaine; Local infiltration with 1 carpule 4% septocaine/articaine 1:100,000 epinephrine - Existing hindu and recurrent decay removed - Matrix band and wedge used as needed - Desensitizer: Gluma - Etching done using 37% phosphoric acid. - farm agent applied. - Composite hindu done using Filtek body/flowable composite, shade A2 - Anatomy and margins adjusted - Proximal contact confirmed with floss. - Occlusion checked with articulating paper - Necessary reductions made. - [facility] smoothed and polished. - Post op instructions given Patient satisfied, left in stable condition Patient made aware possible post op sensitivity NV: Chi[place] Provider: Dr. Shyam Grande Professor Sculpture: Amena Chen Supervising dentist: Dr. House * Carmen House DDS - 03/31/2025 1:30 PM EDT I have reviewed the documentation and dental procedures completed by the rendering provider, Shyam Grande DDS, and approve their chart entries for this visit. LIZ Groves DDS documented in this encounter Plan of Treatment Upcoming Encounters Date Type Department Care Team (Late st Contact Info) Description 04/28/2025 2:30 PM EDT Office Visit [facility] [address] [place] [address] Shyam Grande [address] [place] [address] 05/03/2025 11:00 AM EDT Office Visit [facility] [address] [place] [address] Rigo Alanis 05/10/2025 11:00 AM EDT Office Visit [facility] [address] [place] [address] Rigo Alanis documented as of this encounter Procedures Procedure Name Priority Date/Time Associated Diagnosis Comments 3 DOL RESIN-BASED COMPOSITE - 3 SURF, POSTERIOR Routine 03/31/2025 1:30 PM EDT documented in this encounter Visit Diagnoses Not on filedocumented in this encounter
--- NOTE | 2025-04-07 09:53 | A.OFFVIS_ITS ---
Intake Vital Signs 04/07/25 09:54 Height 5 ft 6 in Weight 157 lb BMI 25.3 BP 132/62 Blood Pressure Location Lt brachial Position Sitting Pulse 95 Pulse Source Pulse Oximeter Pulse Oximetry (%) 96 Oxygen Delivery Method Room Air Intake Visit Reasons: CONOR G0439 Accompanied by: Self / Same As Patient Allergies No Known Allergies Allergy (Verified 04/07/25 10:16) Medication List - Last Reconciled 04/07/25 by Lyssa Cordero PA-C [id number] 250-250-65 mg (Excedrin Migraine) 1 tab PO DAILY PRN atorvastatin 40 mg PO DAILY 90 days chlorpheniramine maleate 4 mg PO Q4H PRN cholecalciferol (vitamin D3) 50 mcg PO DAILY docusate sodium (Colace) 100 mg PO BID multivitamin 1 tab PO DAILY HPI CONOR G0439 HPI Details 84-year-old male with past medical histo ry of hypercholesterolemia, LFT elevation, impaired glucose tolerance last seen 02/2025 coming in for annual wellness visit. Presenting with an annual wellness visit and chronic back pain. Chronic back pain has been a recurring issue, with the most severe episode in [id number] managed by resident care director and MRI findings at L4, L5, S1. The current episode began on January 27, possibly exacerbated by poor lumbar support while driving. career based intervention coordinator was effective in the past but not during this episode. PSA: ordered colonoscopy: 2011 advised no longer needed eye exam: yearly w/ [place] and retina specialist vaccines: UTD will need flu in April [facility] Medical History URI with cough and congestion Anxiety Adult general medical exam Sore throat Tick bite Surgical History History of laparoscopic appendectomy (01/19/24) Hx of colonoscopy Hx of bilateral cataract extraction Hx of tonsillectomy Family History Father No problems noted. Mother No problems noted. Brother No problems noted. Sister No problems noted. Sister No problems noted. Sister No problems noted. Son No problems noted. Social History Household Members: Spouse Housing: House Alcohol intake: current Alcohol intake frequency: holidays/special occasions only Patient Tobacco Use Status: Never used Tobacco Tobacco use type: Cigarette e-Cigarette/Vaping Use: Never Used Second Hand Smoke Exposure: No service: No Current occupational status: retired Current occupational exposures/hazards: No Cognitive needs: No Hearing needs: No Vision needs: Yes (glasses) Questionnaire Medicare Wellness Checkup What is your age?: 80 or older What gender do you identify with?: male During the past 4 weeks, how much have you been bothered by emotional problems such as feeling anxious, depressed, irritable, sad or downhearted, and blue?: sl ightly During the past 4 weeks, has your physical & emotional health limited your social activities with family, friends, neighbors, or groups?: slightly During the past 4 weeks, how much bodily pain have you generally had?: moderate pain During the past 4 weeks, was someone available to help you if you needed & wanted help?: yes, as much as I wanted During the past 4 weeks, what was the hardest physical activity you could do for at least 2 minutes?: moderate Can you get to places out of walking distance without help? (For eg., can you travel alone on buses, taxis or drive your car?): Yes Can you go shopping for groceries or clothes without someone's help?: Yes Can you prepare your own meals?: Yes Can you do your housework without help?: Yes Because of any health problems, do you need the help of another person with your personal care needs such as eating, bathing, dressing or getting around the house?: No Can you handle your own money without help?: Yes During the past 4 weeks, how would you rate your health in general?: fair During the past 4 weeks how have things been going for you?: pretty well Are you having difficulties driving your car?: no Do you always fasten your seat belt when you are in a car?: yes, usually During past 4 weeks, have you been bothered by the following: never: Falling or dizzy when standing up, Sexual problems?, Trouble eating well?, Teeth or denture problems? and Problems using the telephone? and sometimes: Tiredness or fatigue? Have you fallen 2 or more times in the past year?: Yes Are you afraid of falling?: No Are you a smoker?: no During the past 4 weeks, how many drinks of wine, beer, or other alcoholic beverages did you have?: 1 drink or less per week Do you exercise for about 20 minutes 3 or more times a week?: yes, all the time Have you been given information to help with the following?: no: Hazards in your house that might hurt you? and no: Keeping track of your medications? How often do you have trouble taking medicines the way you have been told to take them?: I always take medicine as prescribed How confident are you that you can control & manage most of your health problems?: somewhat confident What is your race?: White PHQ-9 Over the last 2 weeks, how often have you been bothered by any of the following problems? 1. Little interest or pleasure in doing things: not at all 2. Feeling down, depressed, or hopeless: not at all 3. Trouble falling or staying asleep, or sleeping too much: not at all 4. Feeling tired or having little energy: not at all 5. Poor appetite or overeating: not at all 6. Feeling bad about yourself - or that you are a failure or have let yourself or your family down: not at all 7. Trouble concentrating on things, such as reading the newspaper or watching television: not at all 8. Moving or speaking so slowly that other people could have noticed. Or the opposite - being so fidgety or restless that you have been moving around a lot more than usual: not at all 9. Thoughts that you would be better off or of hurting yourself in some way: not at all Total score: 0 96714 - PHQ-9 Billing: Yes Source: Developed by Drs. Tod Og, Vivienne Verma, Estrada Granado and colleagues, with an educational eugenie from [employer] Review of Systems Const Denies body aches, Denies fatigue, Denies fever(s), Denies frequent falls, Denies headache(s) and Denies weakness Eyes Reports no additional complaints and Denies change in vision ENT Denies dysphagia, Denies dizziness, Denies facial pain, Denies headache(s), Denies nasal congestion and Denies odynophagia Card Denies chest pain, Denies syncope, Denies irregular heart rhythm, Denies leg edema, Denies lightheadedness and Denies dyspnea Resp Denies cough and Denies dyspnea GI Denies abdominal pain, Denies constipation, Denies dysphagia, Denies dyspepsia, Denies diarrhea, Denies nausea, Denies odynophagia and Denies vomiting Denies dysuria, Denies urinary frequency, Denies urinary hesitancy and Denies urinary urgency Musc Reports back pain and Denies myalgias Skin/Breast Reports system reviewed and no additional complaints, except as documented Neuro Denies dizziness, Denies syncope, Denies frequent falls, Denies headache(s) and Denies weakness Psych Reports no additional complaints Endo Denies fatigue Physical Exam Vital Signs: Last Vital Signs Pulse 95 04/07/25 09:54 BP 132/62 04/07/25 09:54 Pulse Ox 96 04/07/25 09:54 Oxygen Delivery Method Room Air 04/07/25 09:54 BMI result Body Mass Index 25.3 Const General: cooperative, healthy appearing, comfortable and no acute distress Orientation/consciousness: patient oriented x3 HEENT Head: Yes normocephalic Ears: hearing grossly normal bilaterally General nose exam: Normal external nose present Eyes General: appearance normal, both eyes and all related structures Conjunctivae: conjunctivae normal Neck Neck: Yes full ROM and Yes no lymphadenopathy Resp Effort & Inspection: normal respiratory effort Auscultation: clear to auscultation bilaterally, no crackles, no rales, no rhonchi and no wheezes Cardio Rate: regular rate Rhythm: regular rhythm Back/Spine/Pelvis Other: pos SLR right side and tenderness to right lower back Skin General skin exam: no rashes or lesions noted Neuro General: patient oriented x3 Gait exam (Neuro): Normal gait present Extrem General: Yes normal to inspection, Yes full ROM and No edema Psych Affect: normal affect Attitude: cooperative Insight: Good insight present (Psych) Judgement: Good judgement present (Psych) Assessment & Plan Assessment & Plan (1) Medicare annual wellness visit, subsequent: Comment: HCP completed previously and MOLST given 03/2025 Code(s): Z00.00 - Encounter for general adult medical examination without abnormal findings Plan: [place] of care was reviewed with patient patient was provided with a written screening schedule. Healthcare proxy/ MOLST forms were reviewed with patient today. Healthcare proxy is previously been completed and patient was provided MOLST form. He has good cognitive awareness in his able to make informed decisions about his own health. Blood work has been reviewed with the patient today and did ordered for updated blood work as well. Healthy diet and regular exercise is encouraged. (2) Hypercholesterolemia: Code(s): E78.00 - Pure hypercholesterolemia, unspecified Plan: Avoid foods that are high in cholesterol such as red meat, fried foods, eggs and baked goods. Triglyceride goal of less than 150p and LDL goal of less than 130. Continue on Atorvastatin 40. Reminded about blood work (3) Impaired glucose tolerance: Code(s): R73.02 - Impaired glucose tolerance (oral) Plan: Decrease the amount of carbohydrates such as pasta, bread, rice, and potatoes and limit the amount of sweets. Although fruits are generally healthy they should be eaten in moderation as they are still high in sugar. Reminded about blood work (4) Overweight (BMI 25.0-29.9): Code(s): E66.3 - Overweight Plan: Healthy diet and regular exercise is encouraged. (5) LFT elevation: Comment: Ultrasound done negative Code(s): R79.89 - Other specified abnormal findings of blood chemistry Plan: Continue to monitor blood work. (6) Right sciatic nerve pain: Code(s): M54.31 - Sciatica, right side Plan: For the chronic back pain he is scheduled to undergo PT 04/12/2025. If back pain does not improve consider imaging of the spine and/or referral to pain management or strategic partnership specialist. Plan This note was constructed using voice recognition software. While every effort has been made to ensure accuracy and portable router operator, still areas may have been included sometimes these areas may affect the content or meeting of the given symptoms. Total time spent caring for the patient today was 30 minutes. This includes time spent before the visit reviewing the chart, time spent during the visit, and time spent after the visit and documentation. Patient was informed and verbally consented to the use of an ambient scribe for clinic note documentation during this visit. Orders: Orders UA CC w/rflx Micro + Cult Today R35.89 - Other polyuria PSA, Ultra Sensitive Today Z12.5 - Encounter for screening for malignant neoplasm of prostate Quality Reporting (2019) Depression/Bipolar (159/160/161/177) PHQ-9: Total score: 0 Coding Level of Care Code Medicare Subsequent (G0439) Diagnoses Medicare annual wellness visit, subsequent Z00.00 Hypercholesterolemia E78.00 Impaired glucose tolerance R73.02 Overweight (BMI 25.0-29.9) E66.3 LFT elevation R79.89 Right sciatic nerve pain M54.31 CPT Codes Advance Care Planning - Time spent: 1-15 minutes, not on file ([id number]) Additional Codes PHQ-9 - 63727 - PHQ-9 Billing: Yes ([id number]) Advance Care Planning Advance Care Planning discussion: Completed/Scanned Date of discussion: 04/07/25 Who was present: patient, myself Forms completed: MOLST Time spent: 1-15 minutes, not on file Actual minutes spent: 5
--- NOTE | 2025-04-07 09:53 | MHC.PC.OV ---
Intake Visit Reasons: SWV G0439 Allergies No Known Allergies Allergy (Verified 03/09/25 12:38) Tobacco use date assessed: 03/09/25 Dental Screening Dental Screen Date: 08/05/24 [facility] Medical History (Updated 03/09/25 @ 12:54 by Arley Hills MD) URI with cough and congestion Anxiety Adult general medical exam Sore throat Tick bite Surgical History History of laparoscopic appendectomy (01/19/24) Hx of colonoscopy Hx of bilateral cataract extraction Hx of tonsillectomy Family History Father No problems noted. Mother No problems noted. Brother No problems noted. Sister No problems noted. Sister No problems noted. Sister No problems noted. Son No problems noted. Social History Household Members: Spouse Housing: House Alcohol intake: current Alcohol intake frequency: holidays/special occasions only Patient Tobacco Use Status: Never used Tobacco Tobacco use type: Cigarette e-Cigarette/Vaping Use: Never Used Second Hand Smoke Exposure: No service: No Current occupational status: retired Current occupational exposures/hazards: No Cognitive needs: No Hearing needs: No Vision needs: Yes (glasses) Questionnaire PHQ-9 Over the last 2 weeks, how often have you been bothered by any of the following problems? 1. Little interest or pleasure in doing things: not at all 2. Feeling down, depressed, or hopeless: not at all 3. Trouble falling or staying asleep, or sleeping too much: not at all 4. Feeling tired or having little energy: not at all 5. Poor appetite or overeating: not at all 6. Feeling bad about yourself - or that you are a failure or have let yourself or your family down: not at all 7. Trouble concentrating on things, such as reading the newspaper or watching television: not at all 8. Moving or speaking so slowly that other people could have noticed. Or the opposite - being so fidgety or restless that you have been moving around a lot more than usual: not at all 9. Thoughts that you would be better off or of hurting yourself in some way: not at all Total score: 0 Depression Screening Interpretation: Negative Depression Screening Done: Yes Source: Developed by Drs. Tod Og, Estrada Kerr and colleagues, with an educational eugenie from [employer]. Thrive Questionnaire Date Thrive assessed: 08/05/24 CHELSEA-7 AMB Questionnaire CHELSEA-7 Date CHELSEA - 7 assessed: 08/05/24 Source: Developed by Drs. Tod Og, Estrada Kerr and colleagues, with an educational eugenie from [employer]. Physical exam (Primary Care) Tobacco/Smoking Status: Tobacco use Status Tobacco use date assessed 03/09/25 03/09/25 12:44 Patient Tobacco Use Status Never used Tobacco 03/09/25 12:44 Tobacco use type Cigarette 03/09/25 12:44 e-Cigarette/Vaping Use Never Used 03/09/25 12:44 Depression Screening Interpretation: Negative Thrive Assessment: Date of Thrive Assessment Date Thrive assessed 08/05/24 03/09/25 12:44 Coding
[2025-04-07 09:54] VITALS: BP 132/62; PULSE 95; O2SAT 96; BMI 25.3
--- OUTSIDE RECORDS SUMMARY | 2025-04-07 10:48 | XMS_ITS | Encounter Summary ---
Author Organization [employer] Address [address] [place] [address] Care Team Providers Care Management Advisor Name Role Phone Unavailable Primary Care Provider Unavailabl e Encounter Details Date Type Department Care Team (Latest Contact Info) Description 02/08/2019 Abstract [facility] CONVERSIONS Dental, Provider, DDS Social History Tobacco [...] as of this encounter Plan of Treatment Upcoming Encounters Date Type Department Care Team (Late st Contact Info) Description 04/28/2025 2:30 PM EDT Office Visit [facility] [address] [place] [address] Harjinder, Shyam [address] [place] [address] 05/03/2025 11:00 AM EDT Office Visit [facility] [address] [place] [address] Rigo Alanis 05/10/2025 11:00 AM EDT Office Visit [facility] [address] [place] [address] Rigo Alanis documented as of this encounter Visit Diagnoses Not on filedocumented in this encounter
--- OUTSIDE RECORDS SUMMARY | 2025-04-07 10:48 | XMS_ITS | Clinical Summary ---
Author Organization [employer] Address [address] [place] [address] [address] [place] [address] Care Team Providers Care Living Nurse Name Role Phone Unavailable Primary Care Provider Unavailabl e Allergies No known active allergies Medications atorvastatin (Lipitor) 40 MG tablet 12/18/2024 Active Encounters Date Type Department Care Team Description 03/31/2025 1:30 PM EDT Office Visit [facility] [address] [place] [address] Shyam Grande 02/24/2025 1:00 PM EDT Office Visit [facility] [address] [place] [address] Rigo Alanis Dental calculus (Primary Dx) 02/15/2025 Telephone [facility] [address] [place] [address] Carmen House DDS from Last 3 Months [...] Pressure 130/80 03/31/2025 1:40 PM EDT Pulse 65 02/24/2025 1:09 PM EDT Temperature - - Respiratory Rate - - Oxygen Saturation - - Inhaled Oxygen Concentration - - Weight - - Height - - Body Mass Index - - Plan of Treatment Upcoming Encounters Date Type Department Care Team ([facility] st Contact Info) Description 04/28/2025 2:30 PM EDT Office Visit [facility] [address] [place] [address] Shyam Grande [address] [place] [address] 05/03/2025 11:00 AM EDT Office Visit [facility] [address] [place] [address] Rigo Alanis 05/10/2025 11:00 AM EDT Office Visit [facility] [address] [place] [address] Rigo Alanis Health Maintenance Due Date Last Done Comments Depression Screening 1940 Lipid Panel 1940 SDOH Screening 1940 Alcohol/Substance Use Screening 1952 Zoster Vaccines (1 of 2) 1990 Dental Oral Exam 08/12/2019 02/08/2019, , 02/05/2018, Additional history exists COVID-19 Vaccine ( season) 2025 04/19/2024, 05/11/2023, 06/21/2022, Additional history exists Influenza Vaccine (#1) 2025 , 05/11/2023, 04/30/2022, Additional history exists Dental Prophylaxis 08/28/2025 02/24/2025, 0 02/08/2019, 08/10/2018, Additional history exists Dental X-Ray: Bitewings 02/25/2026 02/25/20, 08/10/2018, 08/11/2017, Additional history exists Tobacco Screening 03/31/2026 03/31/2025 Dental X-Ray: Full Mouth 02/26/2028 02/24/2025, 06/26 [...] SURF, POSTERIOR Routine 03/31/2025 1:30 PM EDT CASE PRESENTATION, DETAILED AND EXTENSIVE TREATMENT PLANNING [...] Most Recently Relevant to Health Maintenance Insurance [facility]
== END 2025-04-07 10:49 | disposition home or self-care (01) ==
LOC: HO.HMCH 09:40
PROVIDERS: PCP Internal Medicine
DX: Z00.00 Encounter for general adult medical examination without abnormal findings (principal); E78.00 Pure hypercholesterolemia, unspecified; E66.3 Overweight; Z68.25 Body mass index [BMI] 25.0-25.9, adult; R73.02 Impaired glucose tolerance (oral); R79.89 Other specified abnormal findings of blood chemistry; M54.31 Sciatica, right side

== ENCOUNTER → 2025-04-07 09:39 | Outpatient (BNVA) | payer MEDICARE, SELFPAY | PROVIDERS: PCP Internal Medicine | DX: Z00.00 Encounter for general adult medical examination without abnormal findings (principal); E78.00 Pure hypercholesterolemia, unspecified; R73.02 Impaired glucose tolerance (oral); G89.29 Other chronic pain; E66.3 Overweight; R79.89 Other specified abnormal findings of blood chemistry; M54.31 Sciatica, right side; R35.89 Other polyuria; Z68.25 Body mass index [BMI] 25.0-25.9, adult | CPT/HCPCS: 96127 ==

== ENCOUNTER 2025-05-26 07:55 | Outpatient (RCR) | payer MEDICARE, SELFPAY ==
--- NOTE | 2025-04-12 13:00 | MHC.PT.EP ---
[facility] [place] [facility] [place] Office [place] Office [address] Prince Raymundo [address] [phone] F: [phone] F: [phone] F: [phone] F: [phone] Physical Therapy Plan of Care Date of Evaluation: 04/12/25 Date of Surgery: Diagnosis: LOW BACK PAIN WITH RIGHT SIDED SCIATICA (KP) Assessment: TA IS A PLEASANT 84 YO MALE WHO REPORTS ON THE January HE WAS DRIVING AND HAD RIGHT SIDED BACK SPASM THAT LASTED ABOUT 3 HOURS. HE DID HAVE 4 TREATENTS OF CHIROPRACTIC WORK WHICH PROVIDED TEMPORARY RELIEF BUT NOTHING SHELTER. WAS ISSUED HEP FROM PREVIOUS CHIROPRACTOR - THOSE HAVE HELPED. WHEN PAIN IS BAD PAIN IS REPORTED INTENSE , BURNING ABOVE THE BELT TO KNEE , SCIATICA AND TIGHTNESS . NOTES IN AM HE IS VERY STIFF AND STARTS TO PERFORM SOME LIGHT STRETCHING PRIOR TO GETTING UP. REPORTS HE TENDS TO DO BETTER WITH MOVEMENT AND AFTER WALKING SHORT DISTANCES REPETELY OVER SEVERAL DAYS HIS SYMPTOMS WILL IMPROVE. AT THIS POINT HE NOTES THE PAIN HAS BECOME LESS INTENSE. HE FINDS PAIN INCREASES BENDING OVER RAPIDLY (PUGTING ON SOCKS) WILL CAUSE PAIN RIGHT AWAY. ICE AND HEAP HELP TO ALLEVIATE PAIN WELL TOPICAL CREAM. RESIDES IN PRIVATE HOME WITH STAIRS TO ENTER AND INSIDE, PAIN WILL INCREASE BUT HE NOW HE PERFORMS NON-RECIPROCAL GAIT ON STAIRS. NEEDS TO BRING TO [place] FOR TREATMENT AT [facility] EVERY FEW MONTHS BUT TREATMENT 3 X WEEK AT [facility] SO CAR RIDES ARE ESSENTIAL. HE REPORTS DIFFICULTY WITH SLEEPING DUE TO PAIN, DECREASED MIKE TO RECREATIONAL ACTIVITIES ([place]). UPON EXAM IMPAIRMENTS INCLUDE DECREASED TRUNK ROM, DECREASE LE ROM AND STRENGTH, ALTERED GAIT PATTERN, INCREASED TISSUE TENSION AND PAIN. FUNCTIONAL LIMITATIONS INCLUDE DECREASED ABILITY TO PERFORM DRIVING AND STAIR NEGOTIATION, REPORTS DIFFICULTY WITH LE DRESSING AND PROLONGED SITTING. HE REPORTS DECREASED PARTICIPATION IN COMMUNITY AND FITNESS ACTIVITIES. HE REPORTS DISRUPTED SLEEP. Frequency and Duration: The patient will be seen 2 X WEEK FOR 6 WEEKS Short Term Goals: INITIATE HEP AND PROMOTE SELF MANAGEMENT OF SYMPTOMS Vault Keeper Goals: Patient will perform functional activities (e.g., walking, stair climbing, lifting =10 lbs) independently without pain or compensatory movement Patient will complete a full lumbar range of motion without pain or substitution. Patient will improve trunk and core strength to 4+/5 as measured by manual muscle testing to support spine during ADLs. Patient will maintain pain =2/10 during work and recreational tasks for one week. Patient will return to pre-exaccerbation recreational activities without pain flare-up Treatment Plan: Modalities to reduce pain, spasms and effusion. Manual therapy to restore motion and function. Therapeutic exercise to improve strength and flexibility. Neuromuscular re-education for posture and balance. Therapeutic activities to return to functional activities of daily living. Electronically signed by: PADMAJA CASTANO PT DPT Please sign and return to therapist. Thank you for your referral.
--- NOTE | 2025-05-26 09:32 | MHC.PT.DC ---
[facility] [place] Office [place] Office [place] [facility] [address] Prince Raymundo [address] [phone] F: [phone] F: [phone] F: [phone] F: [phone] Physical Therapy Discharge Report Diagnosis: LOW BACK PAIN WITH RIGHT SIDED SCIATICA (KP) Date of Surgery: Date of Evaluation: 04/12/25 Date of Discharge: 05/26/25 Treatments to Date: 11 Cancellations to Date: 0 No Shows to Date: 0 Discharge Status: Achieved Goals Improved Function Independent with HEP Discharge Summary: THE Pt FEELS HE HAS RETURNED 90% BACK TO REGULAR ADLs, IMPROVED HIP MOBILITY AND TRUNK / HIP FLEXIBILITY; FUNCTIONALLY HE UTILIZES RECIPROCAL TECHN W STAIR NAVIGATION, INDEP BED MOB, FUNCTIONAL SQUATTING, GENERAL TRANSITIONAL MOB.. HE IS INDEP AND COMPLIANT W HEP-> HIS OSWESTRY SCORE AT D/C 5/50, AND, AT EVAL : /50. HE HAS MET HIS PT GOALS AND IS D/C AT THIS TIME. Electronically signed by: ANGELICA FAYE,PT Please sign and return to therapist. Thank you for your referral.
== END 2025-06-09 15:18 | disposition home or self-care (01) ==
LOC: HO.PT 07:55
PROVIDERS: PCP Internal Medicine; Visit Provider Internal Medicine
DX: M54.31 Sciatica, right side (principal)
CPT/HCPCS: 97110; 97140; 97162; 97530; 97535